=== PATIENT | male | born 1955 | race Caucasian/White ===

== ENCOUNTER 2018-10-31 10:44 | Emergency (ER) | payer OTHER ==
[~2018-10-31] VITALS: Ht 182.9 cm; Wt 94.8 kg
[2018-10-31 10:45] VITALS: BP 167/80
[2018-10-31] MEDS ORDERED: ASPI81TA26 PO (10:54)
[2018-10-31] MEDS ORDERED: LANTINJ4 SC ×2 (10:54→11:18)
[2018-10-31] MEDS ORDERED: PROV108A INH ×2 (10:54→11:18)
[2018-10-31] MEDS ORDERED: ATOR1TAB21 PO (10:54)
[2018-10-31] MEDS ORDERED: BUSP1TAB PO (10:54)
[2018-10-31] MEDS ORDERED: METF-877 PO (10:54)
[2018-10-31] MEDS ORDERED: LISI20TA20 PO ×2 (10:54→11:18)
== END 2018-10-31 11:32 | disposition home or self-care (01) ==
LOC: M ED 10:44
DX: Z76.0 Encounter for issue of repeat prescription (principal); I10 Essential (primary) hypertension; E11.9 Type 2 diabetes mellitus without complications; J45.909 Unspecified asthma, uncomplicated; F32.9 Major depressive disorder, single episode, unspecified; F17.210 Nicotine dependence, cigarettes, uncomplicated; Z79.899 Other long term (current) drug therapy; Z79.4 Long term (current) use of insulin; Z79.82 Long term (current) use of aspirin

== ENCOUNTER 2018-11-20 17:03 | Emergency (ER) | payer OTHER ==
[~2018-11-20] VITALS: Ht 182.9 cm; Wt 88.6 kg
[~2018-11-20 17:03] MED LIST: ASPI81TA26 PO; ATOR1TAB21 PO; BUSP1TAB PO; LANTINJ4 SC; LISI20TA20 PO; METF-877 PO; PROV108A INH
[2018-11-20] MEDS ORDERED: LIDOCAINE 2% MDV 20 ML VIAL SC ONE (18:15)
[2018-11-20] MEDS ORDERED: AUGMENTIN 875 MG TAB PO ONE (18:30)
[2018-11-20] MEDS ORDERED: IBUPROFEN 800 MG TAB PO ONE (18:30)
[2018-11-20] MEDS ORDERED: ADACEL/BOOSTRIX VACCINE (DIPHTH/PERTUSS/ACELL/TETANUS)0.5ML SYR (90715) IM ONE (18:30)
[2018-11-20] MEDS ORDERED: AUGM875T28 PO (18:45)
[2018-11-20 18:50] VITALS: BP 169/76
== END 2018-11-20 18:55 | disposition home or self-care (01) ==
LOC: M ED 17:03
DX: S61.217A Laceration without foreign body of left little finger without damage to nail, initial encounter (principal); W55.01XA Bitten by cat, initial encounter; Y92.008 Other place in unspecified non-institutional (private) residence as the place of occurrence of the external cause; E11.9 Type 2 diabetes mellitus without complications; I10 Essential (primary) hypertension; F33.9 Major depressive disorder, recurrent, unspecified; Z79.899 Other long term (current) drug therapy; Z79.4 Long term (current) use of insulin; F17.210 Nicotine dependence, cigarettes, uncomplicated

== ENCOUNTER 2018-11-26 12:49 | Emergency (ER) | payer MEDICAID, OTHER, SELFPAY ==
[~2018-11-26] VITALS: Ht 182.9 cm; Wt 93.6 kg
[2018-11-26 12:49] VITALS: BP 144/77
[~2018-11-26 12:49] MED LIST changes: +AUGM875T28 PO
[2018-11-26] MEDS ORDERED: LANTINJ4 SC (13:33)
[2018-11-26] MEDS ORDERED: METF10004 PO (13:33)
[2018-11-26] MEDS ORDERED: LISI20TA20 PO (13:33)
[2018-11-26] MEDS ORDERED: PHAR1TES VI (13:33)
[2018-11-26] MEDS ORDERED: ATOR1TAB21 PO (13:33)
[2018-11-26] MEDS ORDERED: PROV108A INH (13:33)
== END 2018-11-26 13:44 | disposition home or self-care (01) ==
LOC: M ED 12:49
DX: Z76.0 Encounter for issue of repeat prescription (principal); E11.9 Type 2 diabetes mellitus without complications; F17.200 Nicotine dependence, unspecified, uncomplicated; F12.90 Cannabis use, unspecified, uncomplicated

== ENCOUNTER 2018-11-28 14:04 | Emergency (ER) | payer MEDICAID ==
[~2018-11-28] VITALS: Ht 182.9 cm; Wt 99.1 kg
[~2018-11-28 14:04] MED LIST changes: +METF10004 PO; +PHAR1TES VI
[2018-11-28 14:05] VITALS: BP 153/72
[2018-11-28] MEDS ORDERED: AUGM875T28 PO (14:28)
== END 2018-11-28 14:54 | disposition home or self-care (01) ==
LOC: M ED 14:04
DX: S61.207A Unspecified open wound of left little finger without damage to nail, initial encounter (principal); S61.251A Open bite of left index finger without damage to nail, initial encounter; W55.01XA Bitten by cat, initial encounter; Y92.009 Unspecified place in unspecified non-institutional (private) residence as the place of occurrence of the external cause; E11.9 Type 2 diabetes mellitus without complications; E78.5 Hyperlipidemia, unspecified; I10 Essential (primary) hypertension; Z79.899 Other long term (current) drug therapy; Z79.4 Long term (current) use of insulin

== ENCOUNTER 2018-12-01 11:02 | Emergency (ER) | payer MEDICAID ==
[~2018-12-01] VITALS: Ht 182.9 cm; Wt 97.7 kg
[2018-12-01 11:02] VITALS: BP 162/75
== END 2018-12-01 11:43 | disposition home or self-care (01) ==
LOC: M ED 11:02
DX: Z48.02 Encounter for removal of sutures (principal); L08.9 Local infection of the skin and subcutaneous tissue, unspecified

== ENCOUNTER 2018-12-28 10:52 | Emergency (ER) | payer MEDICAID ==
[~2018-12-28] VITALS: Ht 182.9 cm; Wt 90.9 kg
[2018-12-28 10:52] VITALS: BP 146/107
== END 2018-12-28 11:07 | disposition left against medical advice (07) ==
LOC: M ED 10:52
DX: Z53.21 Procedure and treatment not carried out due to patient leaving prior to being seen by health care provider (principal)

== ENCOUNTER → 2019-01-10 | Outpatient (REF) | payer MEDICAID, OTHER | LOC: M SFHCPLAZ 13:51 | PROVIDERS: ATTEND Family Medicine | DX: E11.69 Type 2 diabetes mellitus with other specified complication (principal) ==

== ENCOUNTER → 2019-04-20 | Outpatient (REF) | payer MEDICAID, OTHER ==
[2019-04-20 14:37] LABS: BLOOD UREA NITROGEN 12 MG/DL (7-18); CALCIUM LEVEL 9.5 MG/DL (8.8-10.2); CARBON DIOXIDE LEVEL 26 MEQ/L (21-32); CHLORIDE LEVEL 107 MEQ/L (98-107); CHOLESTEROL LEVEL 139 MG/DL (<200); CHOLESTEROL RISK RATIO 3.475 (<5); CREATININE FOR GFR 1.03 MG/DL (0.70-1.30); GLOMERULAR FILTRATION RATE > 60.0 (>49); GLUCOSE, FASTING 210 MG/DL (70-100); HDL CHOLESTEROL 40 MG/DL (>40); LDL CHOLESTEROL 61 MG/DL (<100); NON-HDL-C 99 MG/DL; POTASSIUM SERUM 4.5 MEQ/L (3.5-5.1); SODIUM LEVEL 139 MEQ/L (136-145); TRIGLYCERIDES LEVEL 192 MG/DL (<150)
[2019-04-20 15:07] LABS: MALB URINE SIEMENS 24.6 MG/L; MAU/CREAT RATIO 17.4 MCG/MG (0.0-30.0)
[2019-04-20 15:42] LABS: HEMOGLOBIN A1c 8.6 %
== END ==
LOC: M SFHCPLAZ 11:13
PROVIDERS: ATTEND Family Medicine
DX: E11.65 Type 2 diabetes mellitus with hyperglycemia (principal)

== ENCOUNTER 2019-10-12 12:11 | Emergency (ER) | payer OTHER ==
[~2019-10-12] VITALS: Ht 182.9 cm; Wt 93.0 kg
[2019-10-12] MEDS ORDERED: INSULADS INJ (12:47)
--- NOTE | 2019-10-12 13:32 | REPVR ---
PROCEDURE INFORMATION: Exam: XR Left Hand Exam date and time: 10/12/2019 1:15 PM Age: 64 years old Clinical indication: Pain; Hand; Left; Additional info: Patient punched floor TECHNIQUE: Imaging protocol: XR Left hand. Views: 3 or more views. COMPARISON: No relevant prior studies available. FINDINGS: Bones/joints: No acute fracture. No dislocation. A healed remote-appearing fracture deformity of the 5th metacarpal is present. Soft tissues: Soft tissue swelling overlies the 5th metacarpal. IMPRESSION: 1. No acute fracture. 2. Hand soft tissue swelling. Electronically signed by: Liang Jackson On 10/12/2019 13:31:41 PM
--- NOTE | 2019-10-12 13:37 | REPVR ---
PROCEDURE INFORMATION: Exam: XR Left Forearm Exam date and time: 10/12/2019 1:15 PM Age: 64 years old Clinical indication: Pain; Lower or forearm; Left; Additional info: Patient punched floor TECHNIQUE: Imaging protocol: XR Left forearm. Views: 2 views. COMPARISON: No relevant prior studies available. FINDINGS: Bones/joints: No acute fracture. No dislocation. Soft tissues: Unremarkable as visualized. IMPRESSION: No acute findings. Electronically signed by: Liang Jackson On 10/12/2019 13:37:05 PM
[2019-10-12 14:08] LABS: BASO # 0.1 10^3/uL (0.0-0.2); BASO % 0.4 % (0.0-1.0); EOS % 0.2 % (0.0-3.0); HEMATOCRIT 47.1 % (42.0-52.0); HEMOGLOBIN 15.6 g/dl (13.5-17.5); LYMPH # 2.8 10^3/uL (1.5-5.0); LYMPH % 17.7 % (24.0-44.0); MEAN CORPUSCULAR HEMOGLOBIN 30.8 pg (27.0-33.0); MEAN CORPUSCULAR HGB CONC 33.1 g/dl (32.0-36.5); MEAN CORPUSCULAR VOLUME 92.9 fl (80.0-96.0); MONO # 1.2 10^3/uL (0.0-0.8); MONO % 7.9 % (0.0-5.0); NEUTROPHILS # 11.5 10^3/uL (1.5-8.5); NEUTROPHILS % 73.5 % (36.0-66.0); PLATELET COUNT, AUTOMATED 296 10^3/uL (150-450); RED BLOOD COUNT 5.07 10^6/uL (4.30-6.10); WHITE BLOOD COUNT 15.7 10^3/uL (4.0-10.0)
[2019-10-12 14:35] LABS: BILIRUBIN,DIRECT 0.3 MG/DL (0.0-0.2); BILIRUBIN,TOTAL 1.3 MG/DL (0.2-1.0); C REACTIVE PROTEIN QUANTITATIV 6.43 MG/DL (0.00-0.30); TOTAL PROTEIN 8.4 GM/DL (6.4-8.2)
[2019-10-12 14:38] LABS: ERYTHROCYTE SEDIMENTATION RATE 43 mm/hr (0-20)
[2019-10-12] MEDS ORDERED: BACT800T5 PO (15:27)
[2019-10-12] MEDS ORDERED: KETO10TAB PO (15:27)
[2019-10-12] MEDS ORDERED: KETOROLAC TROMETHAMINE 10 MG TAB PO ONE (15:30)
[2019-10-12 15:32] VITALS: BP 143/76
== END 2019-10-12 15:40 | disposition home or self-care (01) ==
LOC: M ED 12:11
DX: L03.114 Cellulitis of left upper limb (principal); W55.03XA Scratched by cat, initial encounter; E78.5 Hyperlipidemia, unspecified; F32.9 Major depressive disorder, single episode, unspecified; I10 Essential (primary) hypertension; E11.9 Type 2 diabetes mellitus without complications; J44.9 Chronic obstructive pulmonary disease, unspecified; F12.10 Cannabis abuse, uncomplicated; F17.200 Nicotine dependence, unspecified, uncomplicated; Z79.51 Long term (current) use of inhaled steroids; Z79.4 Long term (current) use of insulin; Z79.899 Other long term (current) drug therapy; Y92.9 Unspecified place or not applicable; Y93.9 Activity, unspecified; Y99.9 Unspecified external cause status

== ENCOUNTER → 2020-02-07 | Outpatient (REF) | payer OTHER ==
[~2020-02-07] MED LIST changes: +BACT800T5 PO; +INSULADS INJ; +KETO10TAB PO
[2020-02-07 14:37] LABS: HEMOGLOBIN A1c 8.3 %
[2020-02-07 14:47] LABS: CHOLESTEROL RISK RATIO 2.155 (<5)
== END ==
LOC: M PLALAB 10:50
PROVIDERS: ATTEND Urology
DX: E11.65 Type 2 diabetes mellitus with hyperglycemia (principal); E78.2 Mixed hyperlipidemia

== ENCOUNTER → 2020-02-24 | Outpatient (CLI) | payer OTHER ==
--- NOTE | 2020-02-26 09:40 | REP ---
INDICATION: LUNG CANCER SCREENING COMPARISON: None. TECHNIQUE: Axial noncontrast images from the thoracic inlet to the upper abdomen using low-dose lung screening technique (LDCT). FINDINGS: Lung olivas demonstrate minimal scattered age-related changes and few scattered chronic blebs. No consolidation, significant nodule or mass lesion. Few 1-2 mm densities are appreciated and nonspecific. No effusion. No pneumothorax. Tracheobronchial tree is patent. IMPRESSION: Lung-RADS category 1. Management recommendations include annual low-dose CT evaluation. <Electronically signed by Migue Akers > 02/26/20 0936
== END ==
LOC: M RAD 10:41
PROVIDERS: ATTEND Student in an Organized Health Care Education/Training Program
DX: Z12.2 Encounter for screening for malignant neoplasm of respiratory organs (principal); F17.218 Nicotine dependence, cigarettes, with other nicotine-induced disorders; J43.9 Emphysema, unspecified

== ENCOUNTER 2020-03-25 12:38 | Emergency (ER) | payer OTHER ==
[~2020-03-25] VITALS: Ht 182.9 cm; Wt 89.3 kg
[2020-03-25 12:39] VITALS: BP 138/76
--- OUTSIDE RECORDS SUMMARY | 2020-03-25 12:45 | CCD ---
Author Author [facility] Organization [facility] Address Unknown Phone Unavailable Care Team Providers Care Wind Operations Supervisor Name Role Phone IleanaFe Unavailable PROBLEMS Type Condition ICD9-CM Code [id number] Code Onset Dates Condition S tatus SNOMED Code Notes Problem Open bite of left hand, subsequent encounter S61.4 52D Active 801132682 Problem Bitten by cat, subsequent encounter W55.01XD Act rj 683156848 Problem Hypertension, unspecified type I10 Active 3 7424703 Problem Refused pneumococcal vaccination Z28.21 Active 413123443 Problem Primary insomnia F51.01 Active 0239820 Problem Obesity, unspecified E66.9 Active 275602575 Problem Anxiety F41.9 Active 61032740 Problem Mixed hyperlipidemia E78.2 Active 210085920 Problem Tobacco use disorder F17.200 Active 210098673 Problem Gastroesophageal reflux disease without esophagitis K21.9 Active 044562519 Problem Vaccination refused by patient Z28.21 Active 5 30334661084 Problem Insomnia, unspecified type G47.00 Active 54835 2000 Problem Psychophysiological insomnia F51.04 Active 425 365331 Problem 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.4 Activ e 361815228 Problem Type 2 diabetes mellitus with hyperglycemia E11.65 Active 85267592 ALLERGIES No Known Allergies ENCOUNTERS from 1955 to 2020-02-14 Encounter Location Date Provider Diagnosis [address] [id number] Feb, [place] IMMUNIZATIONS No Information SOCIAL HISTORY Tobacco Use: Social History Observation Description Date Details (start date - stop date) Current Smoker Sex Assigned At : Social History Observation Description Sex Assigned At Unknown Audit Question Answer Notes Total Score: 0 Interpretation: Alcohol Education Language: Question Answer Notes Languages spoken: Malay Drug and Alcohol Question Answer Notes Total Score: 0 Interpretation: No problems reported Tobacco Use: Question Answer Notes Are you a: current smoker Smoking Cessation Information Given 05/18/2019 Patient counseled on the dangers of tobacco use and urged to quit: 05/18/2019 How many cigarettes a day do you smoke? 6-10 Are you interested in quitting? Not ready to quit Counseled the patient on smoking effects, education provided 05/18/2019 REASON FOR REFERRAL No Information VITAL SIGNS No information MEDICATIONS Medication SIG (Take, Route, Frequency, Duration) Notes Start Da te End Date Status Metformin HCl 1000 MG 1 tablet with a meal Orally twice daily for 9 0 day(s) Active Crestor 40 MG 1 tablet Orally Once a day for 90 day(s) Dec, Active Misc. Devices - directed subcutaneously insulin needle; daily for 30 Days Active OneTouch Verio - as directed subcutaneously f our times daily before meals and before bed PRN if lightheadeness, dizziness, or nausea, vomiting for 30 Days Active Lancets Misc. - as directed subcutaneously f our daily before meals and befoer bed and as needed if lightheadeness, dizziness, or nausea, vomiting for 30 Days Jan, Active Lancets - as directed subcutaneously four times daily for 30 Days May, Active Basaglar KwikPen 100 UNIT/ML 47 units Subcutaneous Daily for 30 Days Active Alcohol Wipes 70 % as directed Externally four times daily before meals and before bed and PRN for 30 Days A ctive Proventil HFA 108 (90 Base) MCG/ACT 2 puffs as needed Inhalation every 6 hrs as needed for 30 Active Lisinopril-Hydrochlorothiazide 20-25 MG 1 tablet Orally Once a day for 30 Days Active Cimetidine 200 MG 1 tablet at bedtime Orally Once a day for 90 d ay(s) Dec, Active Aspirin 81 MG 1 tablet Orally Once a day for 90 day(s) Active Seroquel 50 MG 1-2 tablet at bedtime Orally as needed before bedtim e for 28 Active OneTouch Verio w/Device as directed subcutaneously f our times daily before bed and before meals, and as needed Jan, Active PROCEDURES No Information RESULTS No Results REASON FOR VISIT low dose lung scrrening MEDICAL (GENERAL) HISTORY Type Description Date Medical History Osteomyelitis of left foot 20 years ago Medical History HTN Medical History DM 2; diagnosed at 57 yo, with chronic i nsulin use Medical History Anxiety Medical History Tobacco use Medical History Mixed hyperlipidemia Medical History GERD Medical History Insomnia Surgical History cholycystectomy Surgical History appendectomy Hospitalization History infected wound 10/2019 [place] No Information Health Concerns No Information MEDICAL EQUIPMENT No Information MENTAL STATUS No Information FUNCTIONAL STATUS No Information ASSESSMENTS No Information PLAN OF TREATMENT Medication Medication Name Sig Start Date Stop Date Lancets Misc. - as directed subcutaneously f our daily before meals and befoer bed and as needed if lightheadeness, dizziness, or nausea, vomiting for 30 Days Jan, Aspirin 81 MG 1 tablet Orally Once a day for 90 day(s) OneTouch Verio - as directed subcutaneously f our times daily before meals and before bed PRN if lightheadeness, dizziness, or nausea, vomiting for 30 Days Cimetidine 200 MG 1 tablet at bedtime Orally Once a day fo r 90 day(s) Dec, Misc. Devices - directed subcutaneously insulin needle; daily fo r 30 Days Lancets - as directed subcutaneously four times daily for 30 Days May, Basaglar KwikPen 100 UNIT/ML 47 units Subcutaneous Daily for 30 Days Alcohol Wipes 70 % as directed Externally four times daily before meals and before bed and PRN for 30 Days Crestor 40 MG 1 tablet Orally Once a day for 90 day(s) Dec, Metformin HCl 1000 MG 1 tablet with a meal Orally twice daily fo r 90 day(s) Lisinopril-Hydrochlorothiazide 20-25 MG 1 tablet Orally Once a day for 30 Days Insurance Providers Payer Name Payer Address Payer Phone Insured Name Patient Relati onship to Insured Coverage Start Date Coverage End Date [facility] [place] [address] [facility] [phone] DONNA LANCASTER self
--- OUTSIDE RECORDS SUMMARY | 2020-03-25 12:45 | CCD ---
Author Author [facility] Organization [facility] Address Unknown Phone Unavailable Care Team Providers Care Gaming Floor Supervisor Name Role Phone IleanaFe Unavailable PROBLEMS Type Condition ICD9-CM Code [id number] Code Onset Dates Condition S tatus SNOMED Code Notes Problem Open bite of left hand, subsequent encounter S61.4 52D Active 284578456 Problem Bitten by cat, subsequent encounter W55.01XD Act rj 854247570 Problem Hypertension, unspecified type I10 Active 3 0886211 Problem Refused pneumococcal vaccination Z28.21 Active 002430079 Problem Primary insomnia F51.01 Active 3534205 Problem Obesity, unspecified E66.9 Active 621576891 Problem Anxiety F41.9 Active 51636563 Problem Mixed hyperlipidemia E78.2 Active 948984178 Problem Tobacco use disorder F17.200 Active 270489457 Problem Gastroesophageal reflux disease without esophagitis K21.9 Active 296007583 Problem Vaccination refused by patient Z28.21 Active 5 06854911949 Problem Insomnia, unspecified type G47.00 Active 83193 2000 Problem Psychophysiological insomnia F51.04 Active 425 718279 Problem 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 Activ e 348557019 Problem Type 2 diabetes mellitus with hyperglycemia E11.65 Active 99326575 ALLERGIES No Known Allergies ENCOUNTERS from 1955 to 2020-02-14 Encounter Location Date Provider Diagnosis [address] [address] Jan, [place] Encounter for screening for malignant neoplasm of rectum Z12.12 and Encounter for screening for malignant neoplasm of colon Z12.11 IMMUNIZATIONS No Information SOCIAL HISTORY Tobacco Use: Social History Observation Description Date Details (start date - stop date) Current Smoker Sex Assigned At : Social History Observation Description Sex Assigned At Unknown Audit Question Answer Notes Total Score: 0 Interpretation: Alcohol Education Language: Question Answer Notes Languages spoken: [place] Drug and Alcohol Question Answer Notes Total [...] Information RESULTS No Results REASON FOR VISIT Cologua MEDICAL (GENERAL) HISTORY Type Description Date Medical [...] No Information FUNCTIONAL STATUS No Information ASSESSMENTS Encounter Date Diagnosis Assessment Notes Treatment Notes Treatm ent Clinical Notes Jan, Encounter for screening for malignant neoplasm of rectum (ICD-10 - Z12.12) Pt moved from [place]. No prior medical records inluding any colonoscopy record was able to be obtained. Jan, Encounter for screening for malignant neoplasm of colon (ICD-10 - Z12.11) PLAN OF TREATMENT Medication Medication Name Sig [...] Orally Once a day for 30 Days Treatment Notes Assessment Notes Clinical Notes Encounter for screening for malignant neoplasm of rectum Pt moved from [place]. No prior medical records inluding any colonoscopy record was able to be obtained. Treatment Notes Test Name Order Date [facility] (Send Out Only) 2020-02-14 Insurance Providers Payer Name Payer Address Payer Phone Insured Name Patient Relati onship to Insured Coverage Start Date Coverage End Date PENDING SALE TO [facility] [employer] [address] [facility] [phone] DONNA LANCASTER self
--- OUTSIDE RECORDS SUMMARY | 2020-03-25 12:46 | CCD ---
Author Author [facility] Organization [facility] Address Unknown Phone Unavailable Support Name Relationship Address Phone LAYLA COHEN Next Of Kin [address] [place] [address] JOAQUIN COHEN Next Of Kin [address] [place] [address] RE Next Of Kin Unknown Unavailable SUSU SALMERON Next Of Kin [address] [place] [address] LAYLA Cohen ECON [address] [place] [address] Unavailable Joaquin Cohen ECON [address] [place] [address] Unavailable Re-disclosure Warning The records that you are about to access may contain information from federally-assisted alcohol or drug abuse programs. If such information is present, then the following federally mandated warning applies: This information has been disclosed to you from records protected by federal confidentiality rules (42 CFR part 2). The federal rules prohibit you from making any further disclosure of this information unless further disclosure is expressly permitted by the written consent of the person to whom it pertains or as otherwise permitted by 42 CFR part 2. A general authorization for the release of medical or other information is NOT sufficient for this purpose. The Federal rules restrict any use of the information to criminally investigate or prosecute any alcohol or drug abuse patient.The records that you are about to access may contain highly sensitive health information, the redisclosure of which is protected by Article 27-F of the [place] State Public Health law. If you continue you may have access to information: Regarding HIV / AIDS; Provided by facilities licensed or operated by the [facility] Office of Mental Health; or Provided by the [facility] Office for People With Developmental Disabilities. If such information is present, then the following [facility] mandated warning applies: This information has been disclosed to you from confidential records which are protected by state law. State law prohibits you from making any further disclosure of this information without the specific written consent of the person to whom it pertains, or as otherwise permitted by law. Any unauthorized further disclosure in violation of state law may result in a fine or fci sentence or both. A general authorization for the release of medical or other information is NOT sufficient authorization for further disc losure. Encounters Encounter Providers Location Date Indications Data Source(s ) Unknown [address] [place] [phone] 02/13/2020 12:00:00 AM EST eCW1 ([facility]) Unknown [address] [facility] [id number] 02/08/2020 12:00:00 AM EST eCW1 ([facility]) Outpatient [address] [place] [phone] 11/29/2019 12:00:00 AM EDT eCW1 ([facility]) Unknown [address] [facility] [phone] 11/21/2019 12:00:00 AM EDT eCW1 ([facility]) Outpatient [address] [facility] [id number] 08/30/2019 12:00:00 AM EDT eCW1 ([facility]) [address] [phone] 06/22/2019 12:00:00 AM EDT eCW1 ([facility]) [facility] [address] [place] [phone] 06/20/2019 12:00:00 AM EDT eCW1 ([facility]) [facility] [address] [place] [phone] 06/17/2019 12:00:00 AM EDT eCW1 ([facility]) [facility] [address] [facility] [phone] 06/17/2019 12:00:00 AM EDT eCW1 ([facility]) [facility] GME Resident [address] [place] [phone] 06/16/2019 12:00:00 AM EDT eCW1 ([facility]) [address] [phone] 05/19/2019 12:00:00 AM EDT eCW1 ([facility]) [facility] GME Resident [address] [place] [phone] 05/18/2019 12:00:00 AM EDT eCW1 ([facility]) [address] [phone] 04/23/2019 12:00:00 AM EDT eCW1 ([facility]) [facility] GME Resident [address] [place] [phone] 04/20/2019 12:00:00 AM EDT eCW1 ([facility]) [facility] Natalie [address] [place] [phone] 04/20/2019 12:00:00 AM EDT eCW1 ([facility]) [address] [phone] 04/20/2019 12:00:00 AM EDT eCW1 ([facility]) [facility] GME Resident [address] [place] [phone] 03/02/2019 12:00:00 AM EST eCW1 ([facility]) [address] [phone] 02/28/2019 12:00:00 AM EST eCW1 ([facility]) [facility] GME Resident [address] [place] [phone] 01/31/2019 12:00:00 AM EST eCW1 ([facility]) [facility] [place] [address] [place] [phone] 01/31/2019 12:00:00 AM EST eCW1 [facility] Medications Medication Brand Name Start Date Product Form Dose Route Admi nistrative Instructions Pharmacy Instructions Status Indications Reaction Description Data Source(s) quetiapine 50 MG Oral Tablet QUETIAPINE FUMARATE 02/18/2020 12:0 0:00 AM EST tablet 56 TAKE ONE TO TWO TABLETS BY MOUTH AT BEDTIME NEEDED TAKE ONE TO TWO TABLETS BY MOUTH AT BEDTIME NEEDED SOLD: 02/18/2020 [facility] quetiapine 50 MG Oral Tablet QUETIAPINE FUMARATE 02/18/2020 12:0 0:00 AM EST tablet 56 TAKE ONE TO TWO TABLETS BY MOUTH AT BEDTIME NEEDED TAKE ONE TO TWO TABLETS BY MOUTH AT BEDTIME NEEDED SOLD: 03/16/2020 [facility] Metformin hydrochloride 1000 MG Oral Tablet 1,000 mg METFORM IN HCL 02/13/2020 12:00:00 AM EST tablet 60 TAKE ONE TABLET BY MOUTH TWO TIMES A DAY WITH A MEAL TAKE ONE TABLET BY MOUTH TWO TIMES A DAY WITH A MEAL SOLD: 02/16/2020 [facility] Metformin hydrochloride 1000 MG Oral Tablet 1,000 mg METFORM IN HCL 02/13/2020 12:00:00 AM EST tablet 60 TAKE ONE TABLET BY MOUTH TWO TIMES A DAY WITH A MEAL TAKE ONE TABLET BY MOUTH TWO TIMES A DAY WITH A MEAL SOLD: 03/16/2020 [facility] 32 gauge x 5/32" 02/09/2020 12:00:00 AM EST needle 100 USE DIRECTED DAILY USE DIRECTED DAILY SOLD: 02/12/2020 [facility] 33 gauge 02/08/2020 12:00:00 AM EST misc 100 USE DIRECTED FOUR TIMES A DAY BEFORE MEALS AND BEFORE BED AND NEEDED IF LIGHTHEADENESS, DIZZINESS, NAUSEA OR VOMITING USE DIRECTED FOUR TIMES A DAY BEFORE MEALS AND BEFORE BED AND NEEDED IF LIGHTHEADENESS, DIZZINESS, NAUSEA OR VOMITING SOLD: 02/09/2020 [facility] ALCOHOL ANTISEPTIC PADS 02/08/2020 12:00:00 AM EST pads, med icated 100 USE DIRECTED FOUR TIMES A DAY BEFORE MEALS AND BEFORE BED AND NEEDED USE DIRECTED FOUR TIMES A DAY BEFORE MEALS AND BEFORE BED AND NEEDED SOLD: 03/07/2020 [facility] ALCOHOL ANTISEPTIC PADS 02/08/2020 12:00:00 AM EST pads, med icated 100 USE DIRECTED FOUR TIMES A DAY BEFORE MEALS AND BEFORE BED AND NEEDED USE DIRECTED FOUR TIMES A DAY BEFORE MEALS AND BEFORE BED AND NEEDED SOLD: 02/09/2020 [facility] 33 gauge 02/08/2020 12:00:00 AM EST misc 100 USE DIRECTED FOUR TIMES A DAY BEFORE MEALS AND BEFORE BED AND NEEDED IF LIGHTHEADENESS, DIZZINESS, NAUSEA OR VOMITING USE DIRECTED FOUR TIMES A DAY BEFORE MEALS AND BEFORE BED AND NEEDED IF LIGHTHEADENESS, DIZZINESS, NAUSEA OR VOMITING SOLD: 03/04/2020 [facility] BLOOD SUGAR DIAGNOSTIC 01/29/2020 12:00:00 AM EST strip 100 USE 3X/DAY BEFORE MEALS AND NEEDED IF DIZZY NAUSEA LIGHTHEADED OR VOMITING USE 3X/DAY BEFORE MEALS AND NEEDED IF DIZZY NAUSEA LIGHTHEADED OR VOMITING SOLD: 02/24/2020 [facility] BLOOD SUGAR DIAGNOSTIC 01/29/2020 12:00:00 AM EST strip 100 USE 3X/DAY BEFORE MEALS AND NEEDED IF DIZZY NAUSEA LIGHTHEADED OR VOMITING USE 3X/DAY BEFORE MEALS AND NEEDED IF DIZZY NAUSEA LIGHTHEADED OR VOMITING SOLD: 03/20/2020 [facility] BLOOD SUGAR DIAGNOSTIC 01/29/2020 12:00:00 AM EST strip 100 USE 3X/DAY BEFORE MEALS AND NEEDED IF DIZZY NAUSEA LIGHTHEADED OR VOMITING USE 3X/DAY BEFORE MEALS AND NEEDED IF DIZZY NAUSEA LIGHTHEADED OR VOMITING SOLD: 01/29/2020 [facility] 100 unit/mL (3 mL) 01/28/2020 12:00:00 AM EST insulin pen 15 INJECT 47 UNITS UNDER SKIN DAILY DIRECTED INJECT 47 UNITS UNDER SKIN DAILY DIRECTED SOLD: 02/27/2020 [facility] 100 unit/mL (3 mL) 01/28/2020 12:00:00 AM EST insulin pen 15 INJECT 47 UNITS UNDER SKIN DAILY DIRECTED INJECT 47 UNITS UNDER SKIN DAILY DIRECTED SOLD: 01/29/2020 [facility] 20-25 mg 01/25/2020 12:00:00 AM EST tablet 30 TAKE ONE TABLET BY MOUTH EVERY DAY TAKE ONE TABLET BY MOUTH EVERY DAY SOLD: 02/27/2020 [facility] 20-25 mg 01/25/2020 12:00:00 AM EST tablet 30 TAKE ONE TABLET BY MOUTH EVERY DAY TAKE ONE TABLET BY MOUTH EVERY DAY SOLD: 01/27/2020 [facility] 200 mg 12/30/2019 12:00:00 AM EST tablet 30 TAKE 1 TABLET BY MOUTH ONCE A DAY AT BEDTIME TAKE 1 TABLET BY MOUTH ONCE A DAY AT BEDTIME SOLD: 01/29/2020 [facility] Rosuvastatin calcium 40 MG Oral Tablet [Crestor] Crestor 40 MG Crestor 40 MG 12/30/2019 12:00:00 AM EST 1.0 {tablet} active Crestor 40 MG eCW1 ([facility]) Rosuvastatin calcium 40 MG Oral Tablet [Crestor] Crestor 40 MG Crestor 40 MG 12/30/2019 12:00:00 AM EST 1.0 {tablet} active Crestor 40 MG eCW1 ([facility]) Rosuvastatin calcium 40 MG Oral Tablet ROSUVASTATIN CALCIUM 12/30/2019 12:00:00 AM EST tablet 30 TAKE 1 TABLET BY MOUTH ONCE A DAY TAKE 1 TABLET BY MOUTH ONCE A DAY SOLD: 02/27/2020 [facility] Rosuvastatin calcium 40 MG Oral Tablet ROSUVASTATIN CALCIUM 12/30/2019 12:00:00 AM EST tablet 30 TAKE 1 TABLET BY MOUTH ONCE A DAY TAKE 1 TABLET BY MOUTH ONCE A DAY SOLD: 12/31/2019 [facility] Rosuvastatin calcium 40 MG Oral Tablet ROSUVASTATIN CALCIUM 12/30/2019 12:00:00 AM EST tablet 30 TAKE 1 TABLET BY MOUTH ONCE A DAY TAKE 1 TABLET BY MOUTH ONCE A DAY SOLD: 01/29/2020 [facility] Cimetidine 200 MG Oral Tablet Cimetidine 200 MG 12/30/2019 12:00:00 AM EST 1.0 {tablet_at_bedtime} active Cimetidine 200 MG eCW1 ([facility]) Cimetidine 200 MG Oral Tablet Cimetidine 200 MG 12/30/2019 12:00:00 AM EST 1.0 {tablet_at_bedtime} active Cimetidine 200 MG eCW1 ([facility]) 200 mg 12/30/2019 12:00:00 AM EST tablet 30 TAKE 1 TABLET BY MOUTH ONCE A DAY AT BEDTIME TAKE 1 TABLET BY MOUTH ONCE A DAY AT BEDTIME SOLD: 02/27/2020 [facility] 200 mg 12/30/2019 12:00:00 AM EST tablet 30 TAKE 1 TABLET BY MOUTH ONCE A DAY AT BEDTIME TAKE 1 TABLET BY MOUTH ONCE A DAY AT BEDTIME SOLD: 12/31/2019 [facility] 32 gauge x 5/32" 12/14/2019 12:00:00 AM EST needle 30 USE DIRECTED DAILY USE DIRECTED DAILY SOLD: 12/15/2019 [facility] 32 gauge x 5/32" 12/14/2019 12:00:00 AM EST needle 30 USE DIRECTED DAILY USE DIRECTED DAILY SOLD: 01/14/2020 [facility] 90 mcg/actuation 11/29/2019 12:00:00 AM EDT HFA aerosol inha ler 6 INHALE 2 PUFFS EVERY 6 HOURS NEEDED INHALE 2 PUFFS EVERY 6 HOURS NEEDED SOLD: 01/18/2020 [facility] 90 mcg/actuation 11/29/2019 12:00:00 AM EDT HFA aerosol inha ler 6 INHALE 2 PUFFS EVERY 6 HOURS NEEDED INHALE 2 PUFFS EVERY 6 HOURS NEEDED SOLD: 12/04/2019 [facility] 90 mcg/actuation 11/29/2019 12:00:00 AM EDT HFA aerosol inha ler 6 INHALE 2 PUFFS EVERY 6 HOURS NEEDED INHALE 2 PUFFS EVERY 6 HOURS NEEDED SOLD: 03/07/2020 [facility] 90 mcg/actuation 11/29/2019 12:00:00 AM EDT HFA aerosol inha ler 6 INHALE 2 PUFFS EVERY 6 HOURS NEEDED INHALE 2 PUFFS EVERY 6 HOURS NEEDED SOLD: 02/12/2020 [facility] 20-25 mg 11/29/2019 12:00:00 AM EDT tablet 30 TAKE ONE TABLET BY MOUTH ONCE DAILY TAKE ONE TABLET BY MOUTH ONCE DAILY SOLD: 12/04/2019 [facility] 33 gauge 11/29/2019 12:00:00 AM EDT misc 100 TEST THREE TIMES A DAY BEFORE MEALS AND NEEDED TEST THREE TIMES A DAY BEFORE MEALS AND NEEDED SOLD : 12/04/2019 [facility] atorvastatin 80 MG Oral Tablet ATORVASTATIN CALCIUM 11/29/2019 1 2:00:00 AM EDT tablet 30 TAKE ONE TABLET BY MOUTH ONCE DA ANNE TAKE ONE TABLET BY MOUTH ONCE DAILY SOLD: 12/04/2019 [facility] 33 gauge 11/29/2019 12:00:00 AM EDT misc 100 TEST THREE TIMES A DAY BEFORE MEALS AND NEEDED TEST THREE TIMES A DAY BEFORE MEALS AND NEEDED SOLD : 12/28/2019 [facility] quetiapine 50 MG Oral Tablet QUETIAPINE FUMARATE 11/28/2019 12:0 0:00 AM EDT tablet 56 TAKE ONE TO TWO TABLETS BY MOUTH AT BEDTIME NEEDED TAKE ONE TO TWO TABLETS BY MOUTH AT BEDTIME NEEDED SOLD: 01/21/2020 [facility] quetiapine 50 MG Oral Tablet QUETIAPINE FUMARATE 11/28/2019 12:0 0:00 AM EDT tablet 56 TAKE ONE TO TWO TABLETS BY MOUTH AT BEDTIME NEEDED TAKE ONE TO TWO TABLETS BY MOUTH AT BEDTIME NEEDED SOLD: 11/29/2019 [facility] quetiapine 50 MG Oral Tablet QUETIAPINE FUMARATE 11/28/2019 12:0 0:00 AM EDT tablet 56 TAKE ONE TO TWO TABLETS BY MOUTH AT BEDTIME NEEDED TAKE ONE TO TWO TABLETS BY MOUTH AT BEDTIME NEEDED SOLD: 12/25/2019 [facility] 81 mg 11/23/2019 12:00:00 AM EDT tablet,delayed release (DR/EC) 30 TAKE ONE TABLET BY MOUTH EVERY DAY TAKE ONE TABLET BY MOUTH EVERY DAY SOLD: 01/27/2020 [facility] 81 mg 11/23/2019 12:00:00 AM EDT tablet,delayed release (DR/EC) 30 TAKE ONE TABLET BY MOUTH EVERY DAY TAKE ONE TABLET BY MOUTH EVERY DAY SOLD: 12/28/2019 [facility] 81 mg 11/23/2019 12:00:00 AM EDT tablet,delayed release (DR/EC) 30 TAKE ONE TABLET BY MOUTH EVERY DAY TAKE ONE TABLET BY MOUTH EVERY DAY SOLD: 11/29/2019 [facility] 100 unit/mL (3 mL) 11/23/2019 12:00:00 AM EDT insulin pen 15 INJECT 47 UNITS UNDER THE SKIN ONCE DAILY INJECT 47 UNITS UNDER THE SKIN ONCE DAILY SOLD: 11/29/2019 [facility] 100 unit/mL (3 mL) 11/23/2019 12:00:00 AM EDT insulin pen 15 INJECT 47 UNITS UNDER THE SKIN ONCE DAILY INJECT 47 UNITS UNDER THE SKIN ONCE DAILY SOLD: 12/31/2019 [facility] 81 mg 11/23/2019 12:00:00 AM EDT tablet,delayed release (DR/EC) 30 TAKE ONE TABLET BY MOUTH EVERY DAY TAKE ONE TABLET BY MOUTH EVERY DAY SOLD: 02/27/2020 [facility] Sulfamethoxazole 800 MG / Trimethoprim 160 MG Oral Tab let 800-160 mg SULFAMETHOXAZOLE/TRIMETHOPRIM 10/12/2019 12:00:00 AM EDT tablet 20 TAKE ONE TABLET BY MOUTH EVERY 12 HOURS TAKE ONE TABLET BY MOUTH EVERY 12 HOURS SOLD: 10/12/2019 [facility] 10 mg 10/12/2019 12:00:00 AM EDT tablet 20 TAKE 1 TABLET [10MG] BY MOUTH EVERY 6 HOURS NEEDED FOR PAIN TAKE 1 TABLET [10MG] BY MOUTH EVERY 6 HO URS NEEDED FOR PAIN SOLD: 10/12/2019 [facility] 100 unit/mL (3 mL) 09/26/2019 12:00:00 AM EDT insulin pen 15 INJECT 47 UNITS UNDER SKIN DAILY DIRECTED INJECT 47 UNITS UNDER SKIN DAILY DIRECTED SOLD: 09/26/2019 [facility] 100 unit/mL (3 mL) 09/26/2019 12:00:00 AM EDT insulin pen 15 INJECT 47 UNITS UNDER SKIN DAILY DIRECTED INJECT 47 UNITS UNDER SKIN DAILY DIRECTED SOLD: 10/25/2019 [facility] BLOOD SUGAR DIAGNOSTIC 09/19/2019 12:00:00 AM EDT strip 125 USE TO TEST THREE TIMES A DAY BEFORE MEALS & NEEDED IF LIGHTHEADEDNESS , DIZZINESS, OR NAUSEA,VOMITING USE TO TEST THREE TIMES A DAY BEFORE VALERIE LS & NEEDED IF LIGHTHEADEDNESS , DIZZINESS, OR NAUSEA,VOMITING SOLD: 12/25/2019 [facility] BLOOD SUGAR DIAGNOSTIC 09/19/2019 12:00:00 AM EDT strip 125 USE TO TEST THREE TIMES A DAY BEFORE MEALS & NEEDED IF LIGHTHEADEDNESS , DIZZINESS, OR NAUSEA,VOMITING USE TO TEST THREE TIMES A DAY BEFORE VALERIE LS & NEEDED IF LIGHTHEADEDNESS , DIZZINESS, OR NAUSEA,VOMITING SOLD: 11/23/2019 [facility] BLOOD SUGAR DIAGNOSTIC 09/19/2019 12:00:00 AM EDT strip 125 USE TO TEST THREE TIMES A DAY BEFORE MEALS & NEEDED IF LIGHTHEADEDNESS , DIZZINESS, OR NAUSEA,VOMITING USE TO TEST THREE TIMES A DAY BEFORE VALERIE LS & NEEDED IF LIGHTHEADEDNESS , DIZZINESS, OR NAUSEA,VOMITING SOLD: 09/19/2019 [facility] quetiapine 50 MG Oral Tablet QUETIAPINE FUMARATE 08/31/2019 12:0 0:00 AM EDT tablet 56 TAKE ONE TO TWO TABLETS BY MOUTH AT BEDTIME NEEDED TAKE ONE TO TWO TABLETS BY MOUTH AT BEDTIME NEEDED SOLD: 10/29/2019 [facility] quetiapine 50 MG Oral Tablet QUETIAPINE FUMARATE 08/31/2019 12:0 0:00 AM EDT tablet 56 TAKE ONE TO TWO TABLETS BY MOUTH AT BEDTIME NEEDED TAKE ONE TO TWO TABLETS BY MOUTH AT BEDTIME NEEDED SOLD: 09/02/2019 [facility] quetiapine 50 MG Oral Tablet QUETIAPINE FUMARATE 08/31/2019 12:0 0:00 AM EDT tablet 56 TAKE ONE TO TWO TABLETS BY MOUTH AT BEDTIME NEEDED TAKE ONE TO TWO TABLETS BY MOUTH AT BEDTIME NEEDED SOLD: 10/01/2019 [facility] 100 unit/mL (3 mL) 08/26/2019 12:00:00 AM EDT insulin pen 15 INJECT 40 UNITS UNDER SKIN DAILY INJECT 40 UNITS UNDER SKIN DAILY SOLD: 08/29/2019 [facility] 1,000 mg 08/18/2019 12:00:00 AM EDT tablet 60 TAKE ONE TABLET BY MOUTH TWICE A DAY WITH MEALS TAKE ONE TABLET BY MOUTH TWICE A DAY WITH MEALS SOLD: 08/20/2019 [facility] 1,000 mg 08/18/2019 12:00:00 AM EDT tablet 60 TAKE ONE TABLET BY MOUTH TWICE A DAY WITH MEALS TAKE ONE TABLET BY MOUTH TWICE A DAY WITH MEALS SOLD: 09/17/2019 [facility] Metformin hydrochloride 1000 MG Oral Tablet 1,000 mg METFORM IN HCL 08/18/2019 12:00:00 AM EDT tablet 60 TAKE ONE TABLET BY MOUTH TWICE A DAY WITH MEALS TAKE ONE TABLET BY MOUTH TWICE A DAY WITH MEALS SOLD: 10/18/2019 [facility] Metformin hydrochloride 1000 MG Oral Tablet 1,000 mg METFORM IN HCL 08/18/2019 12:00:00 AM EDT tablet 60 TAKE ONE TABLET BY MOUTH TWICE A DAY WITH MEALS TAKE ONE TABLET BY MOUTH TWICE A DAY WITH MEALS SOLD: 12/17/2019 [facility] Metformin hydrochloride 1000 MG Oral Tablet 1,000 mg METFORM IN HCL 08/18/2019 12:00:00 AM EDT tablet 60 TAKE ONE TABLET BY MOUTH TWICE A DAY WITH MEALS TAKE ONE TABLET BY MOUTH TWICE A DAY WITH MEALS SOLD: 01/16/2020 [facility] Metformin hydrochloride 1000 MG Oral Tablet 1,000 mg METFORM IN HCL 08/18/2019 12:00:00 AM EDT tablet 60 TAKE ONE TABLET BY MOUTH TWICE A DAY WITH MEALS TAKE ONE TABLET BY MOUTH TWICE A DAY WITH MEALS SOLD: 11/16/2019 [facility] 25 mg 07/12/2019 12:00:00 AM EDT tablet 28 TAKE ONE TABLET BY MOUTH AT BEDTIME NEEDED TAKE ONE TABLET BY MOUTH AT BEDTIME NEEDED SOLD: [facility] 90 mcg/actuation 07/12/2019 12:00:00 AM EDT HFA aerosol inha ler 6 INHALE 2 PUFFS BY MOUTH EVERY 6 HOURS NEEDED INHALE 2 PUFFS BY MOUTH EVERY 6 HOURS NEEDED SOLD: 10/11/2019 [facility] 90 mcg/actuation 07/12/2019 12:00:00 AM EDT HFA aerosol inha ler 6 INHALE 2 PUFFS BY MOUTH EVERY 6 HOURS NEEDED INHALE 2 PUFFS BY MOUTH EVERY 6 HOURS NEEDED SOLD: 08/13/2019 [facility] 90 mcg/actuation 07/12/2019 12:00:00 AM EDT HFA aerosol inha ler 6 INHALE 2 PUFFS BY MOUTH EVERY 6 HOURS NEEDED INHALE 2 PUFFS BY MOUTH EVERY 6 HOURS NEEDED SOLD: 07/13/2019 [facility] 90 mcg/actuation 07/12/2019 12:00:00 AM EDT HFA aerosol inha ler 6 INHALE 2 PUFFS BY MOUTH EVERY 6 HOURS NEEDED INHALE 2 PUFFS BY MOUTH EVERY 6 HOURS NEEDED SOLD: 09/12/2019 [facility] 90 mcg/actuation 07/12/2019 12:00:00 AM EDT HFA aerosol inha ler 6 INHALE 2 PUFFS BY MOUTH EVERY 6 HOURS NEEDED INHALE 2 PUFFS BY MOUTH EVERY 6 HOURS NEEDED SOLD: 11/08/2019 [facility] 25 mg 07/12/2019 12:00:00 AM EDT tablet 28 TAKE ONE TABLET BY MOUTH AT BEDTIME NEEDED TAKE ONE TABLET BY MOUTH AT BEDTIME NEEDED SOLD: [facility] 90 mcg/actuation 07/12/2019 12:00:00 AM EDT HFA aerosol inha ler 6 INHALE 2 PUFFS BY MOUTH EVERY 6 HOURS NEEDED INHALE 2 PUFFS BY MOUTH EVERY 6 HOURS NEEDED SOLD: 12/22/2019 [facility] 20-25 mg 07/07/2019 12:00:00 AM EDT tablet 30 TAKE ONE TABLET BY MOUTH EVERY DAY TAKE ONE TABLET BY MOUTH EVERY DAY SOLD: 12/28/2019 [facility] 20-25 mg 07/07/2019 12:00:00 AM EDT tablet 30 TAKE ONE TABLET BY MOUTH EVERY DAY TAKE ONE TABLET BY MOUTH EVERY DAY SOLD: 09/07/2019 [facility] 20-25 mg 07/07/2019 12:00:00 AM EDT tablet 30 TAKE ONE TABLET BY MOUTH EVERY DAY TAKE ONE TABLET BY MOUTH EVERY DAY SOLD: 07/08/2019 [facility] 20-25 mg 07/07/2019 12:00:00 AM EDT tablet 30 TAKE ONE TABLET BY MOUTH EVERY DAY TAKE ONE TABLET BY MOUTH EVERY DAY SOLD: 08/08/2019 [facility] 20-25 mg 07/07/2019 12:00:00 AM EDT tablet 30 TAKE ONE TABLET BY MOUTH EVERY DAY TAKE ONE TABLET BY MOUTH EVERY DAY SOLD: 10/06/2019 [facility] 20-25 mg 07/07/2019 12:00:00 AM EDT tablet 30 TAKE ONE TABLET BY MOUTH EVERY DAY TAKE ONE TABLET BY MOUTH EVERY DAY SOLD: 11/08/2019 [facility] 32 gauge x 5/32" 06/25/2019 12:00:00 AM EDT needle 30 USE DIRECTED DAILY USE DIRECTED DAILY SOLD: 11/16/2019 [facility] 32 gauge x 5/32" 06/25/2019 12:00:00 AM EDT needle 30 USE DIRECTED DAILY USE DIRECTED DAILY SOLD: 09/17/2019 [facility] 32 gauge x 5/32" 06/25/2019 12:00:00 AM EDT needle 30 USE DIRECTED DAILY USE DIRECTED DAILY SOLD: 06/25/2019 [facility] 32 gauge x 5/32" 06/25/2019 12:00:00 AM EDT needle 30 USE DIRECTED DAILY USE DIRECTED DAILY SOLD: 07/23/2019 [facility] 32 gauge x 5/32" 06/25/2019 12:00:00 AM EDT needle 30 USE DIRECTED DAILY USE DIRECTED DAILY SOLD: 08/20/2019 [facility] 32 gauge x 5/32" 06/25/2019 12:00:00 AM EDT needle 30 USE DIRECTED DAILY USE DIRECTED DAILY SOLD: 10/18/2019 [facility] 29 gauge x 1/2" 06/22/2019 12:00:00 AM EDT needle 30 USE DIRECTED DAILY USE DIRECTED DAILY SOLD: 06/24/2019 [facility] Basaglar KwikPen 100 UNIT/ML Basaglar KwikPen 100 UNIT/ML 12:00:00 AM EDT active as directed eCW1 ([facility]) Basaglar KwikPen 100 UNIT/ML Basaglar KwikPen 100 UNIT/ML 12:00:00 AM EDT active as directed eCW1 ([facility]) ALCOHOL ANTISEPTIC PADS 06/17/2019 12:00:00 AM EDT pads, med icated 100 USE DIRECTED THREE TIMES A DAY FOR BLOOD GLUCOSE CHECKS USE DIRECTED THREE TIMES A DAY FOR BLOOD GLUCOSE CHECKS SOLD: 12/28/2019 [facility] ALCOHOL ANTISEPTIC PADS 06/17/2019 12:00:00 AM EDT pads, med icated 100 USE DIRECTED THREE TIMES A DAY FOR BLOOD GLUCOSE CHECKS USE DIRECTED THREE TIMES A DAY FOR BLOOD GLUCOSE CHECKS SOLD: 11/08/2019 [facility] ALCOHOL ANTISEPTIC PADS 06/17/2019 12:00:00 AM EDT pads, med icated 100 USE DIRECTED THREE TIMES A DAY FOR BLOOD GLUCOSE CHECKS USE DIRECTED THREE TIMES A DAY FOR BLOOD GLUCOSE CHECKS SOLD: 08/17/2019 [facility] ALCOHOL ANTISEPTIC PADS 06/17/2019 12:00:00 AM EDT pads, med icated 100 USE DIRECTED THREE TIMES A DAY FOR BLOOD GLUCOSE CHECKS USE DIRECTED THREE TIMES A DAY FOR BLOOD GLUCOSE CHECKS SOLD: 07/18/2019 [facility] ALCOHOL ANTISEPTIC PADS 06/17/2019 12:00:00 AM EDT pads, med icated 100 USE DIRECTED THREE TIMES A DAY FOR BLOOD GLUCOSE CHECKS USE DIRECTED THREE TIMES A DAY FOR BLOOD GLUCOSE CHECKS SOLD: 09/16/2019 [facility] ALCOHOL ANTISEPTIC PADS 06/17/2019 12:00:00 AM EDT pads, med icated 100 USE DIRECTED THREE TIMES A DAY FOR BLOOD GLUCOSE CHECKS USE DIRECTED THREE TIMES A DAY FOR BLOOD GLUCOSE CHECKS SOLD: 06/18/2019 [facility] BLOOD SUGAR DIAGNOSTIC 06/16/2019 12:00:00 AM EDT strip 100 USE TO TEST BLOOD GLUCOSE THREE TIMES A DAY AND NEEDED IF LIGHTHEAD, DIZZY, AND NAUSEA / VOMITING USE TO TEST BLOOD GLUCOSE THREE TIMES A DAY AND NEEDED IF LIGHTHEAD, DIZZY, AND NAUSEA / VOMITING SOLD: 07/15/2019 [facility] BLOOD SUGAR DIAGNOSTIC 06/16/2019 12:00:00 AM EDT strip 100 USE TO TEST BLOOD GLUCOSE THREE TIMES A DAY AND NEEDED IF LIGHTHEAD, DIZZY, AND NAUSEA / VOMITING USE TO TEST BLOOD GLUCOSE THREE TIMES A DAY AND NEEDED IF LIGHTHEAD, DIZZY, AND NAUSEA / VOMITING SOLD: 08/23/2019 [facility] BLOOD SUGAR DIAGNOSTIC 06/16/2019 12:00:00 AM EDT strip 100 USE TO TEST BLOOD GLUCOSE THREE TIMES A DAY AND NEEDED IF LIGHTHEAD, DIZZY, AND NAUSEA / VOMITING USE TO TEST BLOOD GLUCOSE THREE TIMES A DAY AND NEEDED IF LIGHTHEAD, DIZZY, AND NAUSEA / VOMITING SOLD: 10/25/2019 [facility] BLOOD SUGAR DIAGNOSTIC 06/16/2019 12:00:00 AM EDT strip 100 USE TO TEST BLOOD GLUCOSE THREE TIMES A DAY AND NEEDED IF LIGHTHEAD, DIZZY, AND NAUSEA / VOMITING USE TO TEST BLOOD GLUCOSE THREE TIMES A DAY AND NEEDED IF LIGHTHEAD, DIZZY, AND NAUSEA / VOMITING SOLD: 06/17/2019 [facility] 1.5 mg/0.5 mL 05/20/2019 12:00:00 AM EDT pen injector 2 INJECT 1.5MG UNDER THE SKIN ONCE WEEKLY INJECT 1.5MG UNDER THE SKIN ONCE WEEKLY SOLD: 05/26/2019 [facility] 0.5 ML dulaglutide 3 MG/ML Auto-Injector [Trulicity] T rulicity 1.5 MG/0.5ML Trulicity 1.5 MG/0.5ML 05/19/2019 12:00:00 AM EDT active as directed eCW1 ([facility]) Lancets - Lancets - 05/18/2019 12:00:00 AM EDT act rj as directed eCW1 ([facility]) Lancets - Lancets - 05/18/2019 12:00:00 AM EDT act rj Lancets - eCW1 ([facility]) Lancets - Lancets - 05/18/2019 12:00:00 AM EDT act rj Lancets - eCW1 ([facility]) Lancets - Lancets - 05/18/2019 12:00:00 AM EDT act rj Lancets - eCW1 ([facility]) atorvastatin 80 MG Oral Tablet Atorvastatin Calcium 80 MG Atorvastatin Calcium 80 MG 05/18/2019 12:00:00 AM EDT 1.0 {tablet} activ e Atorvastatin Calcium 80 MG eCW1 ([facility]) Lancets - Lancets - 05/18/2019 12:00:00 AM EDT act rj as directed eCW1 ([facility]) 33 gauge 05/18/2019 12:00:00 AM EDT misc 100 USE DIRECTED FOUR TIMES A DAY USE DIRECTED FOUR TIMES A DAY SOLD: 05/20/2019 [facility] Lancets - Lancets - 05/18/2019 12:00:00 AM EDT act rj as directed eCW1 ([facility]) atorvastatin 80 MG Oral Tablet Atorvastatin Calcium 80 MG Atorvastatin Calcium 80 MG 05/18/2019 12:00:00 AM EDT 1.0 {tablet} activ e Atorvastatin Calcium 80 MG eCW1 ([facility]) Lancets - Lancets - 05/18/2019 12:00:00 AM EDT act rj Lancets - eCW1 ([facility]) atorvastatin 80 MG Oral Tablet Atorvastatin Calcium 80 MG Atorvastatin Calcium 80 MG 05/18/2019 12:00:00 AM EDT active 1 tablet eCW1 ([facility]) atorvastatin 80 MG Oral Tablet Atorvastatin Calcium 80 MG Atorvastatin Calcium 80 MG 05/18/2019 12:00:00 AM EDT active 1 tablet eCW1 ([facility]) atorvastatin 80 MG Oral Tablet Atorvastatin Calcium 80 MG Atorvastatin Calcium 80 MG 05/18/2019 12:00:00 AM EDT active 1 tablet eCW1 ([facility]) 25 mg 05/18/2019 12:00:00 AM EDT tablet 28 TAKE 1 TABLET BY MOUTH BEFORE BEDTIME NEEDED TAKE 1 TABLET BY MOUTH BEFORE BEDTIME NEEDED SOLD: 06/17/2019 [facility] Lancets - Lancets - 05/18/2019 12:00:00 AM EDT act rj Lancets - eCW1 ([facility]) 80 mg 05/18/2019 12:00:00 AM EDT tablet 30 TAKE 1 TABLET BY MOUTH ONCE A DAY TAKE 1 TABLET BY MOUTH ONCE A DAY SOLD: 05/20/2019 [facility] 33 gauge 05/18/2019 12:00:00 AM EDT misc 100 USE DIRECTED FOUR TIMES A DAY USE DIRECTED FOUR TIMES A DAY SOLD: 06/14/2019 [facility] 25 mg 05/18/2019 12:00:00 AM EDT tablet 28 TAKE 1 TABLET BY MOUTH BEFORE BEDTIME NEEDED TAKE 1 TABLET BY MOUTH BEFORE BEDTIME NEEDED SOLD: 05/20/2019 [facility] atorvastatin 80 MG Oral Tablet Atorvastatin Calcium 80 MG Atorvastatin Calcium 80 MG 05/18/2019 12:00:00 AM EDT 1.0 {tablet} activ e Atorvastatin Calcium 80 MG eCW1 ([facility]) BLOOD SUGAR DIAGNOSTIC 04/28/2019 12:00:00 AM EDT strip 125 DIRECTED 3X/DAY DAY BEFORE MEALS & NEEDED IF LIGHTHEADED/DIZZY/NAUSEA/VOMITING DIRECTED 3X/DAY DAY BEFORE MEALS & NEEDED IF LIGHTHEADED/DIZZY/NAUSEA/VOMITING SOLD: 06/10/2019 [facility] BLOOD SUGAR DIAGNOSTIC 04/28/2019 12:00:00 AM EDT strip 125 DIRECTED 3X/DAY DAY BEFORE MEALS & NEEDED IF LIGHTHEADED/DIZZY/NAUSEA/VOMITING DIRECTED 3X/DAY DAY BEFORE MEALS & NEEDED IF LIGHTHEADED/DIZZY/NAUSEA/VOMITING SOLD: 05/01/2019 [facility] BLOOD SUGAR DIAGNOSTIC 04/28/2019 12:00:00 AM EDT strip 125 DIRECTED 3X/DAY DAY BEFORE MEALS & NEEDED IF LIGHTHEADED/DIZZY/NAUSEA/VOMITING DIRECTED 3X/DAY DAY BEFORE MEALS & NEEDED IF LIGHTHEADED/DIZZY/NAUSEA/VOMITING SOLD: 07/18/2019 [facility] 0.75 mg/0.5 mL 04/23/2019 12:00:00 AM EDT pen injector 2 USE TO INJECT THE CONTENTS OF 1 PEN ONCE WEEKLY USE TO INJECT THE CONTENTS OF 1 PEN ONCE WEEKLY SOLD: 2019 [facility] 0.5 ML dulaglutide 1.5 MG/ML Auto-Injector [Trulicity] Trulicity 0.75 MG/0.5ML Trulicity 0.75 MG/0.5ML 04/23/2019 12:00:00 AM EDT active as directed eCW1 ([facility]) 0.5 ML dulaglutide 1.5 MG/ML Auto-Injector [Trulicity] Trulicity 0.75 MG/0.5ML Trulicity 0.75 MG/0.5ML 04/23/2019 12:00:00 AM EDT active as directed eCW1 ([facility]) 81 mg 04/21/2019 12:00:00 AM EDT tablet,delayed release (DR/EC) 30 TAKE 1 TABLET BY MOUTH ONCE A DAY TAKE 1 TABLET BY MOUTH ONCE A DAY SOLD: 04/21/2019 [facility] 81 mg 04/21/2019 12:00:00 AM EDT tablet,delayed release (DR/EC) 30 TAKE 1 TABLET BY MOUTH ONCE A DAY TAKE 1 TABLET BY MOUTH ONCE A DAY SOLD: 05/20/2019 [facility] 81 mg 04/21/2019 12:00:00 AM EDT tablet,delayed release (DR/EC) 30 TAKE 1 TABLET BY MOUTH ONCE A DAY TAKE 1 TABLET BY MOUTH ONCE A DAY SOLD: 09/12/2019 [facility] 81 mg 04/21/2019 12:00:00 AM EDT tablet,delayed release (DR/EC) 30 TAKE 1 TABLET BY MOUTH ONCE A DAY TAKE 1 TABLET BY MOUTH ONCE A DAY SOLD: 07/15/2019 [facility] 40 mg 04/21/2019 12:00:00 AM EDT tablet 30 TAKE ONE TABLET BY MOUTH EVERY DAY TAKE ONE TABLET BY MOUTH EVERY DAY SOLD: 04/22/2019 [facility] 81 mg 04/21/2019 12:00:00 AM EDT tablet,delayed release (DR/EC) 30 TAKE 1 TABLET BY MOUTH ONCE A DAY TAKE 1 TABLET BY MOUTH ONCE A DAY SOLD: 06/17/2019 [facility] 81 mg 04/21/2019 12:00:00 AM EDT tablet,delayed release (DR/EC) 30 TAKE 1 TABLET BY MOUTH ONCE A DAY TAKE 1 TABLET BY MOUTH ONCE A DAY SOLD: 08/13/2019 [facility] Aspirin 81 MG Delayed Release Oral Tablet Aspirin 81 MG 04/20/2019 12:00:00 AM EDT active 1 tablet eCW1 ([facility]) quetiapine 25 MG Oral Tablet [Seroquel] Seroquel 25 MG Seroq uel 25 MG 04/20/2019 12:00:00 AM EDT active 1 table t at bedtime eCW1 ([facility]) quetiapine 25 MG Oral Tablet [Seroquel] Seroquel 25 MG Seroq uel 25 MG 04/20/2019 12:00:00 AM EDT active 1 table t at bedtime eCW1 ([facility]) quetiapine 25 MG Oral Tablet [Seroquel] Seroquel 25 MG Seroq uel 25 MG 04/20/2019 12:00:00 AM EDT active 1 table t at bedtime eCW1 ([facility]) atorvastatin 40 MG Oral Tablet Atorvastatin Calcium 40 MG Atorvastatin Calcium 40 MG 04/20/2019 12:00:00 AM EDT active 1 tablet eCW1 ([facility]) 25 mg 04/20/2019 12:00:00 AM EDT tablet 28 TAKE 1 TABLET BY MOUTH BEFORE BEDTIME NEEDED TAKE 1 TABLET BY MOUTH BEFORE BEDTIME NEEDED SOLD: 04/21/2019 [facility] Aspirin 81 MG Delayed Release Oral Tablet Aspirin 81 MG 04/20/2019 12:00:00 AM EDT active 1 tablet eCW1 ([facility]) Aspirin 81 MG Delayed Release Oral Tablet Aspirin 81 MG 04/20/2019 12:00:00 AM EDT 1.0 {tablet} active Aspirin 81 MG eCW1 ([facility]) Aspirin 81 MG Delayed Release Oral Tablet Aspirin 81 MG 04/20/2019 12:00:00 AM EDT active 1 tablet eCW1 ([facility]) quetiapine 25 MG Oral Tablet [Seroquel] Seroquel 25 MG Seroq uel 25 MG 04/20/2019 12:00:00 AM EDT active 1 table t at bedtime eCW1 ([facility]) Aspirin 81 MG Delayed Release Oral Tablet Aspirin 81 MG 04/20/2019 12:00:00 AM EDT active 1 tablet eCW1 ([facility]) Trazodone Hydrochloride 50 MG Oral Tablet Trazodone HC l 50 MG Trazodone HCl 50 MG 03/02/2019 12:00:00 AM EST active 1 tablet at bedtime as needed eCW1 ([facility]) Trazodone Hydrochloride 50 MG Oral Tablet Trazodone HC l 50 MG Trazodone HCl 50 MG 03/02/2019 12:00:00 AM EST suspended 1 tablet at bedtime as needed eCW1 ([facility]) Paroxetine 20 MG Oral Tablet [Paxil] Paxil 20 MG Paxil 20 MG 03/02/2019 12:00:00 AM EST active 1 tablet in the morning eCW1 ([facility]) Paroxetine 20 MG Oral Tablet [Paxil] Paxil 20 MG Paxil 20 MG 03/02/2019 12:00:00 AM EST suspended 1 tablet in t he morning eCW1 ([facility]) Paroxetine 20 MG Oral Tablet [Paxil] Paxil 20 MG Paxil 20 MG 03/02/2019 12:00:00 AM EST 1.0 {tablet_in_the_morning} active Paxil 20 MG eCW1 ([facility]) 20 mg 03/02/2019 12:00:00 AM EST tablet 30 TAKE ONE TABLET BY MOUTH EVERY MORNING TAKE ONE TABLET BY MOUTH EVERY MORNING SOLD: 03/03/2019 [facility] 50 mg 03/02/2019 12:00:00 AM EST tablet 30 TAKE ONE TABLET BY MOUTH DAILY AT BEDTIME NEEDED TAKE ONE TABLET BY MOUTH DAILY AT BEDTIME NEEDED SO LD: 03/03/2019 [facility] Paroxetine 20 MG Oral Tablet [Paxil] Paxil 20 MG Paxil 20 MG 03/02/2019 12:00:00 AM EST suspended 1 tablet in t he morning eCW1 ([facility]) Paroxetine 20 MG Oral Tablet [Paxil] Paxil 20 MG Paxil 20 MG 03/02/2019 12:00:00 AM EST active 1 tablet in the morning eCW1 ([facility]) Trazodone Hydrochloride 50 MG Oral Tablet Trazodone HC l 50 MG Trazodone HCl 50 MG 03/02/2019 12:00:00 AM EST suspended 1 tablet at bedtime as needed eCW1 ([facility]) Trazodone Hydrochloride 50 MG Oral Tablet Trazodone HC l 50 MG Trazodone HCl 50 MG 03/02/2019 12:00:00 AM EST active 1 tablet at bedtime as needed eCW1 ([facility]) Trazodone Hydrochloride 50 MG Oral Tablet Trazodone HC l 50 MG Trazodone HCl 50 MG 03/02/2019 12:00:00 AM EST 1.0 {tablet_at_bedtime_as_needed} active Trazodone HCl 50 MG eCW[facility] Trazodone Hydrochloride 50 MG Oral Tablet Trazodone HC l 50 MG Trazodone HCl 50 MG 03/02/2019 12:00:00 AM EST suspended 1 tablet at bedtime as needed eCW1 ([facility]) Paroxetine 20 MG Oral Tablet [Paxil] Paxil 20 MG Paxil 20 MG 03/02/2019 12:00:00 AM EST suspended 1 tablet in t he morning eCW1 ([facility]) Trazodone Hydrochloride 50 MG Oral Tablet Trazodone HC l 50 MG Trazodone HCl 50 MG 03/02/2019 12:00:00 AM EST 1.0 {tablet_at_bedtime_as_needed} active Trazodone HCl 50 MG eCW1 ([facility] Paroxetine 20 MG Oral Tablet [Paxil] Paxil 20 MG Paxil 20 MG 03/02/2019 12:00:00 AM EST 1.0 {tablet_in_the_morning} active Paxil 20 MG eC ([facility]) 1,000 mg 01/27/2019 12:00:00 AM EST tablet 60 TAKE ONE TABLET BY MOUTH TWICE A DAY WITH MEALS TAKE ONE TABLET BY MOUTH TWICE A DAY WITH MEALS SOLD: 03/03/2019 [facility] 1,000 mg 01/27/2019 12:00:00 AM EST tablet 60 TAKE ONE TABLET BY MOUTH TWICE A DAY WITH MEALS TAKE ONE TABLET BY MOUTH TWICE A DAY WITH MEALS SOLD: 01/30/2019 [facility] 100 unit/mL (3 mL) 01/21/2019 12:00:00 AM EST insulin pen 15 INJECT 40 UNITS UNDER THE SKIN DAILY DIRECTED INJECT 40 UNITS UNDER THE SKIN DAILY DIRECTED SOLD: 05/11/2019 [facility] 100 unit/mL (3 mL) 01/21/2019 12:00:00 AM EST insulin pen 15 INJECT 40 UNITS UNDER THE SKIN DAILY DIRECTED INJECT 40 UNITS UNDER THE SKIN DAILY DIRECTED SOLD: 04/02/2019 [facility] 100 unit/mL (3 mL) 01/21/2019 12:00:00 AM EST insulin pen 15 INJECT 40 UNITS UNDER THE SKIN DAILY DIRECTED INJECT 40 UNITS UNDER THE SKIN DAILY DIRECTED SOLD: 07/22/2019 [facility] 100 unit/mL (3 mL) 01/21/2019 12:00:00 AM EST insulin pen 15 INJECT 40 UNITS UNDER THE SKIN DAILY DIRECTED INJECT 40 UNITS UNDER THE SKIN DAILY DIRECTED SOLD: 06/17/2019 [facility] 100 unit/mL (3 mL) 01/21/2019 12:00:00 AM EST insulin pen 15 INJECT 40 UNITS UNDER THE SKIN DAILY DIRECTED INJECT 40 UNITS UNDER THE SKIN DAILY DIRECTED SOLD: 02/23/2019 [facility] BLOOD SUGAR DIAGNOSTIC 01/15/2019 12:00:00 AM EST strip 125 DIRECTED 3X/DAY BEFORE MEALS & NEEDED IF DIZZY LIGHT HEADED NAUSEA/VOMIT DIRECTED 3X/DAY BEFORE MEALS & NEEDED IF DIZZY LIGHT HEADED NAUSEA/VOMIT SOLD: 02/26/2019 [facility] BLOOD SUGAR DIAGNOSTIC 01/15/2019 12:00:00 AM EST strip 125 DIRECTED 3X/DAY BEFORE MEALS & NEEDED IF DIZZY LIGHT HEADED NAUSEA/VOMIT DIRECTED 3X/DAY BEFORE MEALS & NEEDED IF DIZZY LIGHT HEADED NAUSEA/VOMIT SOLD: 04/05/2019 [facility] 90 mcg/actuation 01/11/2019 12:00:00 AM EST HFA aerosol inha ler 18 INHALE 2 PUFFS BY MOUTH EVERY 6 HOURS NEEDED INHALE 2 PUFFS BY MOUTH EVERY 6 HOURS NEEDED SOLD: 04/16/2019 [facility] 20-25 mg 01/11/2019 12:00:00 AM EST tablet 30 TAKE 1 TABLET BY MOUTH ONCE A DAY TAKE 1 TABLET BY MOUTH ONCE A DAY SOLD: 02/11/2019 [facility] 20-25 mg 01/11/2019 12:00:00 AM EST tablet 30 TAKE 1 TABLET BY MOUTH ONCE A DAY TAKE 1 TABLET BY MOUTH ONCE A DAY SOLD: 04/16/2019 [facility] 90 mcg/actuation 01/11/2019 12:00:00 AM EST HFA aerosol inha ler 18 INHALE 2 PUFFS BY MOUTH EVERY 6 HOURS NEEDED INHALE 2 PUFFS BY MOUTH EVERY 6 HOURS NEEDED SOLD: 05/15/2019 [facility] 20-25 mg 01/11/2019 12:00:00 AM EST tablet 30 TAKE 1 TABLET BY MOUTH ONCE A DAY TAKE 1 TABLET BY MOUTH ONCE A DAY SOLD: 03/12/2019 [facility] 90 mcg/actuation 01/11/2019 12:00:00 AM EST HFA aerosol inha ler 18 INHALE 2 PUFFS BY MOUTH EVERY 6 HOURS NEEDED INHALE 2 PUFFS BY MOUTH EVERY 6 HOURS NEEDED SOLD: 02/11/2019 [facility] 20-25 mg 01/11/2019 12:00:00 AM EST tablet 30 TAKE 1 TABLET BY MOUTH ONCE A DAY TAKE 1 TABLET BY MOUTH ONCE A DAY SOLD: 06/10/2019 [facility] 20-25 mg 01/11/2019 12:00:00 AM EST tablet 30 TAKE 1 TABLET BY MOUTH ONCE A DAY TAKE 1 TABLET BY MOUTH ONCE A DAY SOLD: 05/15/2019 [facility] 90 mcg/actuation 01/11/2019 12:00:00 AM EST HFA aerosol inha ler 18 INHALE 2 PUFFS BY MOUTH EVERY 6 HOURS NEEDED INHALE 2 PUFFS BY MOUTH EVERY 6 HOURS NEEDED SOLD: 06/14/2019 [facility] 90 mcg/actuation 01/11/2019 12:00:00 AM EST HFA aerosol inha ler 18 INHALE 2 PUFFS BY MOUTH EVERY 6 HOURS NEEDED INHALE 2 PUFFS BY MOUTH EVERY 6 HOURS NEEDED SOLD: 03/12/2019 [facility] ALCOHOL ANTISEPTIC PADS 01/10/2019 12:00:00 AM EST pads, med icated 100 USE DIRECTED THREE TIMES A DAY FOR BLOOD GLUCOSE CHECKS USE DIRECTED THREE TIMES A DAY FOR BLOOD GLUCOSE CHECKS SOLD: 12/04/2019 [facility] ALCOHOL ANTISEPTIC PADS 01/10/2019 12:00:00 AM EST pads, med icated 100 USE DIRECTED THREE TIMES A DAY FOR BLOOD GLUCOSE CHECKS USE DIRECTED THREE TIMES A DAY FOR BLOOD GLUCOSE CHECKS SOLD: 10/12/2019 [facility] atorvastatin 20 MG Oral Tablet ATORVASTATIN CALCIUM 12/31/2018 1 2:00:00 AM EST tablet 30 TAKE ONE TABLET BY MOUTH EVERY D AY TAKE ONE TABLET BY MOUTH EVERY DAY SOLD: 04/02/2019 [facility] atorvastatin 20 MG Oral Tablet ATORVASTATIN CALCIUM 12/31/2018 1 2:00:00 AM EST tablet 30 TAKE ONE TABLET BY MOUTH EVERY D AY TAKE ONE TABLET BY MOUTH EVERY DAY SOLD: 03/03/2019 [facility] atorvastatin 20 MG Oral Tablet ATORVASTATIN CALCIUM 12/31/2018 1 2:00:00 AM EST tablet 30 TAKE ONE TABLET BY MOUTH EVERY D AY TAKE ONE TABLET BY MOUTH EVERY DAY SOLD: 01/30/2019 [facility] 1,000 mg 12/30/2018 12:00:00 AM EST tablet 60 TAKE ONE TABLET BY MOUTH TWICE A DAY WITH A MEAL TAKE ONE TABLET BY MOUTH TWICE A DAY WITH A MEAL SOLD: 07/22/2019 [facility] 1,000 mg 12/30/2018 12:00:00 AM EST tablet 60 TAKE ONE TABLET BY MOUTH TWICE A DAY WITH A MEAL TAKE ONE TABLET BY MOUTH TWICE A DAY WITH A MEAL SOLD: 06/24/2019 [facility] 1,000 mg 12/30/2018 12:00:00 AM EST tablet 60 TAKE ONE TABLET BY MOUTH TWICE A DAY WITH A MEAL TAKE ONE TABLET BY MOUTH TWICE A DAY WITH A MEAL SOLD: 03/27/2019 [facility] 1,000 mg 12/30/2018 12:00:00 AM EST tablet 60 TAKE ONE TABLET BY MOUTH TWICE A DAY WITH A MEAL TAKE ONE TABLET BY MOUTH TWICE A DAY WITH A MEAL SOLD: 05/26/2019 [facility] 1,000 mg 12/30/2018 12:00:00 AM EST tablet 60 TAKE ONE TABLET BY MOUTH TWICE A DAY WITH A MEAL TAKE ONE TABLET BY MOUTH TWICE A DAY WITH A MEAL SOLD: 2019 [facility] Insurance Providers Payer name Policy type / Coverage type Policy ID Covered libertarian ID Covered libertarian's relationship to desai Policy Desai Plan Information [facility] COMMUNITY PLAN [facility] [id number] SP [id number] [facility] O [id number] S [id number] [facility] COMMUNITY PL[facility] [id number] SP [id number] MEDICAID [id number] SP [id number] [facility] [id number] SP [id number] SELF PAY ONLY [id number] SP [id number] MEDICAID [id number] SP [id number] Problems, Conditions, and Diagnoses Code Display Name Description Problem Type Effective Dates Data Source(s) K21.9 [id number] Gastroesophageal reflux disease without e sophagitis Problem 12/30/2019 12:00:00 AM EST eCW1 ([facility]) E78.2 [id number] Mixed hyperlipidemia Problem 05/18/2019 12:0 0:00 AM EDT eCW1 ([facility]) E78.2 [id number] Mixed hyperlipidemia Problem 05/18/2019 12:0 0:00 AM EDT eCW1 ([facility]) E11.65 [id number] Type 2 diabetes mellitus with hyperglycem ia Problem 04/20/2019 12:00:00 AM EDT eCW1 ([facility]) Z79.4 [id number] skilled nursing (current) use of insulin Proble m 04/20/2019 12:00:00 AM EDT eCW1 ([facility]) F51.04 [id number] Psychophysiological insomnia Problem 04/20/2019 12:00:00 AM EDT eCW1 ([facility]) Z79.4 [id number] intermediate frame tender (current) use of insulin Proble 04/20/2019 12:00:00 AM EDT eCW1 ([facility]) F51.04 [id number] Psychophysiological insomnia Problem 04/20/2019 12:00:00 AM EDT eCW1 ([facility]) E11.65 [id number] Type 2 diabetes mellitus with hyperglycem ia Problem 04/20/2019 12:00:00 AM EDT eCW1 ([facility]) G47.00 [id number] Insomnia, unspecified type Problem 0 12:00:00 AM EST eCW1 ([facility]) F41.9 [id number] Anxiety Problem 03/02/2019 12:00:00 AM ES T eCW1 ([facility]) G47.00 [id number] Insomnia, unspecified type Problem 0 12:00:00 AM EST eCW1 ([facility]) F41.9 [id number] Anxiety Problem 03/02/2019 12:00:00 AM ES T eCW1 ([facility]) Social History Code Duration Value Status Description Data Source(s ) Smoking 02/13/2020 12:00:00 AM EST Current Smoker completed Curre nt Smoker eCW1 ([facility]) Smoking 02/13/2020 12:00:00 AM EST Current Smoker completed Curre nt Smoker eCW1 ([facility]) Smoking 11/29/2019 12:00:00 AM EDT Current Smoker completed Curre nt Smoker eCW1 ([facility]) Smoking 08/30/2019 12:00:00 AM EDT Current Smoker completed Curre nt Smoker eCW1 ([facility]) Smoking 08/30/2019 12:00:00 AM EDT Current Smoker completed Justine nt Smoker eCW1 ([facility]) Vital Signs ID Date Data Source UNK Name Value Range Interpretation Code Description Data Source(s) Diastolic blood pressure 70 mm[Hg] 70 mm[Hg] eCW1 ([facility]) Systolic blood pressure 142 mm[Hg] 142 mm[Hg] e CW1 ([facility]) Body temperature 97.6 [degF] 97.6 [degF] eCW1 ( [facility]) Respiratory rate 18 /min 18 /min eCW1 ([facility]) Heart rate 86 /min 86 /min eCW1 ([facility]) Body mass index (BMI) [Ratio] 28.75 kg/m2 28.75 kg/m2 W1 ([facility]) Body height 72 [in_i] 72 [in_i] eCW1 ([facility]) Body weight 212 [lb_av] 212 [lb_av] eCW1 ([facility]) Diastolic blood pressure 80 mm[Hg] 80 mm[Hg] eCW1 ([facility]) Systolic blood pressure 140 mm[Hg] 140 mm[Hg] e CW1 ([facility]) Body temperature 98.5 [degF] 98.5 [degF] eCW1 ( [facility]) Respiratory rate 20 /min 20 /min eCW1 ([facility]) Heart rate 90 /min 90 /min eCW1 ([facility]) Body mass index (BMI) [Ratio] 27.80 kg/m2 27.80 kg/m2 W1 ([facility]) Body height 72 [in_i] 72 [in_i] eCW1 ([facility]) Body weight 205 [lb_av] 205 [lb_av] eCW1 ([facility]) Diastolic blood pressure 60 mm[Hg] 60 mm[Hg] eCW1 ([facility]) Systolic blood pressure 138 mm[Hg] 138 mm[Hg] e CW1 ([facility]) Body temperature 98.7 [degF] 98.7 [degF] eCW1 ( [facility]) Respiratory rate 18 /min 18 /min eCW1 ([facility]) Heart rate 87 /min 87 /min eCW1 ([facility]) Body mass index (BMI) [Ratio] 28.26 kg/m2 28.26 kg/m2 eCW1 ([facility]) Body height 72 [in_us] 72 [in_us] eCW1 ([facility]) Body weight Measured 208.4 [lb_av] 208.4 [lb_av ] eCW1 ([facility]) Diastolic blood pressure 70 mm[Hg] 70 mm[Hg] eCW1 ([facility]) Systolic blood pressure 138 mm[Hg] 138 mm[Hg] e CW1 ([facility]) Body temperature 97.9 [degF] 97.9 [degF] eCW1 ( [facility]) Respiratory rate 18 /min 18 /min eCW1 ([facility]) Heart rate 78 /min 78 /min eCW1 ([facility]) Body mass index (BMI) [Ratio] 28.53 kg/m2 28.53 kg/m2 W1 ([facility]) Body height 72 [in_us] 72 [in_us] eCW1 ([facility]) Body weight Measured 210.4 [lb_av] 210.4 [lb_av ] eCW1 ([facility]) Diastolic blood pressure 80 mm[Hg] 80 mm[Hg] eCW1 ([facility]) Systolic blood pressure 138 mm[Hg] 138 mm[Hg] e CW1 ([facility]) Body temperature 98.5 [degF] 98.5 [degF] eCW1 ( [facility]) Respiratory rate 18 /min 18 /min eCW1 ([facility]) Heart rate 75 /min 75 /min eCW1 ([facility]) Body mass index (BMI) [Ratio] 28.97 kg/m2 28.97 kg/m2 eCW1 ([facility]) Body height 72 [in_us] 72 [in_us] eCW1 ([facility]) Body weight Measured 213.6 [lb_av] 213.6 [lb_av ] eCW1 ([facility]) Diastolic blood pressure 72 mm[Hg] 72 mm[Hg] eCW1 ([facility]) Systolic blood pressure 130 mm[Hg] 130 mm[Hg] e CW1 ([facility]) Body temperature 97.7 [degF] 97.7 [degF] eCW1 ( [facility]) Respiratory rate 18 /min 18 /min eCW1 ([facility]) Heart rate 94 /min 94 /min eCW1 ([facility]) Body mass index (BMI) [Ratio] 27.83 kg/m2 27.83 kg/m2 eCW1 ([facility]) Body height 72 [in_us] 72 [in_us] eCW1 ([facility]) Body weight Measured 205.2 [lb_av] 205.2 [lb_av ] eCW1 ([facility]) Diastolic blood pressure 80 mm[Hg] 80 mm[Hg] eCW1 ([facility]) Systolic blood pressure 162 mm[Hg] 162 mm[Hg] e CW1 ([facility]) Body temperature 98.6 [degF] 98.6 [degF] eCW1 ( [facility]) Respiratory rate 18 /min 18 /min eCW1 ([facility]) Heart rate 86 /min 86 /min eCW1 ([facility]) Body mass index (BMI) [Ratio] 27.80 kg/m2 27.80 kg/m2 eCW1 ([facility]) Body height 72 [in_us] 72 [in_us] eCW1 ([facility]) Body weight Measured 205 [lb_av] 205 [lb_av] eC W1 ([facility]) Patient Treatment Plan of Care Planned Activity Planned Date Details Description Data Source (s) Cimetidine 200 MG Oral Tablet 12/30/2019 12:00:00 AM EST eCW1 ([facility]) Rosuvastatin calcium 40 MG Oral Tablet [Crestor] 12/30/2019 12:00:0 0 AM EST eCW1 ([facility]) Cimetidine 200 MG Oral Tablet 12/30/2019 12:00:00 AM EST eCW1 ([facility]) Rosuvastatin calcium 40 MG Oral Tablet [Crestor] 12/30/2019 12:00:0 0 AM EST eCW1 ([facility]) Basaglar KwikPen 100 UNIT/ML 06/21/2019 12:00:00 AM EDT eCW1 ([facility]) Basaglar KwikPen 100 UNIT/ML 06/21/2019 12:00:00 AM EDT eCW1 ([facility]) 0.5 ML dulaglutide 3 MG/ML Auto-Injector [Trulicity] 12:00:00 AM EDT eCW1 ([facility]) Lancets - 05/18/2019 12:00:00 AM EDT e CW1 ([facility]) Lancets - 05/18/2019 12:00:00 AM EDT e CW1 ([facility]) atorvastatin 80 MG Oral Tablet 05/18/2019 12:00:00 AM EDT eCW1 ([facility]) atorvastatin 80 MG Oral Tablet 05/18/2019 12:00:00 AM EDT eCW1 ([facility]) Lancets - 05/18/2019 12:00:00 AM EDT e CW1 ([facility]) atorvastatin 80 MG Oral Tablet 05/18/2019 12:00:00 AM EDT eCW1 ([facility]) 0.5 ML dulaglutide 1.5 MG/ML Auto-Injector [Trulicity] 04/23/2019 12:00:00 AM EDT eCW1 ([facility]) Aspirin 81 MG Delayed Release Oral Tablet 04/20/2019 12:00:00 AM ED T eCW1 ([facility]) Aspirin 81 MG Delayed Release Oral Tablet 04/20/2019 12:00:00 AM ED T eCW1 ([facility]) quetiapine 25 MG Oral Tablet [Seroquel] 04/20/2019 12:00:00 AM EDT eCW1 ([facility]) atorvastatin 40 MG Oral Tablet 04/20/2019 12:00:00 AM EDT eCW1 ([facility]) Aspirin 81 MG Delayed Release Oral Tablet 04/20/2019 12:00:00 AM ED T eCW1 ([facility]) quetiapine 25 MG Oral Tablet [Seroquel] 04/20/2019 12:00:00 AM EDT eCW1 ([facility]) Trazodone Hydrochloride 50 MG Oral Tablet 03/02/2019 12:00:00 AM ES T eCW1 ([facility]) Paroxetine 20 MG Oral Tablet [Paxil] 03/02/2019 12:00:00 AM EST eCW1 ([facility])
--- OUTSIDE RECORDS SUMMARY | 2020-03-25 13:05 | CCD ---
Author Author [facility] Organization [facility] Address Unknown Phone Unavailable Support Name Relationship Address Phone LAYLA COHEN Next Of Kin [address] [place] [address] JOAQUIN COHEN Next Of Kin [address] [place] [address] RE Next Of Kin Unknown Unavailable SUSU SALMERON Next Of Kin [address] [place] [address] LAYLA Cohen ECON [address] [place] [address] Unavailable Joaquin Cohen ECON [address] [place] [address] Unavailable Re-disclosure Warning The records that you [...] is protected by Article 27-F of the [place] State Public Health law. If you continue you may have access to information: Regarding HIV / AIDS; Provided by facilities licensed or operated by the [facility] Office of Mental Health; or Provided by the [facility] Office for People With Developmental Disabilities. If such information is present, then the following [facility] mandated warning applies: This information has [...] law may result in a fine or custodial sentence or both. A general authorization for the release of medical or other information is NOT sufficient authorization for further disc losure. Encounters Encounter Providers Location Date Indications Data Source(s ) Unknown [address] [place] [phone] 02/13/2020 12:00:00 AM EST eCW1 ([facility]) Unknown [address] [facility] [id number] 02/08/2020 12:00:00 AM EST eCW1 ([facility]) Outpatient [address] [place] [phone] 11/29/2019 12:00:00 AM EDT eCW1 ([facility]) Unknown [address] [facility] [id number] 11/21/2019 12:00:00 AM EDT eCW1 ([facility]) Outpatient [address] [facility] [id number] 08/30/2019 12:00:00 AM EDT eCW1 ([facility]) [address] [phone] 06/22/2019 12:00:00 AM EDT eCW1 ([facility]) [facility] [address] [place] [phone] 06/20/2019 12:00:00 AM EDT eCW1 ([facility]) [facility] [address] [place] [phone] 06/17/2019 12:00:00 AM EDT eCW1 ([facility]) [facility] [address] [facility] [id number] 06/17/2019 12:00:00 AM EDT eCW1 ([facility]) [facility] GME Resident [address] [place] [phone] 06/16/2019 12:00:00 AM EDT eCW1 ([facility]) [address] [phone] 05/19/2019 12:00:00 AM EDT eCW1 ([facility]) [facility] G[facility] Resident [address] [place] [phone] 05/18/2019 12:00:00 AM EDT eCW1 ([facility]) [address] [phone] 04/23/2019 12:00:00 AM EDT eCW1 ([facility]) [facility] Resident [address] [place] [phone] 04/20/2019 12:00:00 AM EDT eCW1 ([facility]) [facility] Natalie [address] [place] [phone] 04/20/2019 12:00:00 AM EDT eCW1 ([facility]) [address] [phone] 04/20/2019 12:00:00 AM EDT eCW1 ([facility]) [facility] G[facility] Resident [address] [place] [phone] 03/02/2019 12:00:00 AM EST eCW1 ([facility]) [address] [phone] 02/28/2019 12:00:00 AM EST eCW1 ([facility]) [facility] G[facility] Resident [address] [place] [phone] 01/31/2019 12:00:00 AM EST eCW1 ([facility]) [facility] [place] [address] [place] [phone] 01/31/2019 12:00:00 AM EST eCW1 ([facility] Medications Medication Brand Name Start Date Product [...] 1.0 {tablet} active Crestor 40 MG eCW1 ([facility]) Rosuvastatin calcium 40 MG Oral Tablet [Crestor] Crestor 40 MG Crestor 40 MG 12/30/2019 12:00:00 AM EST 1.0 {tablet} active Crestor 40 MG eCW1 ([facility]) Rosuvastatin calcium 40 MG Oral Tablet ROSUVASTATIN [...] 1.0 {tablet_at_bedtime} active Cimetidine 200 MG eCW1 ([facility]) Cimetidine 200 MG Oral Tablet Cimetidine 200 MG 12/30/2019 12:00:00 AM EST 1.0 {tablet_at_bedtime} active Cimetidine 200 MG eCW1 ([facility]) 200 mg 12/30/2019 12:00:00 AM EST tablet [...] DIRECTED DAILY USE DIRECTED DAILY SOLD: 10/18/2019 [facility] 29 gauge x 1/2" 06/22/2019 12:00:00 AM EDT needle 30 USE DIRECTED DAILY USE DIRECTED DAILY SOLD: 06/24/2019 [facility] Basaglar KwikPen 100 UNIT/ML Basaglar KwikPen 100 UNIT/ML 12:00:00 AM EDT active as directed eCW1 ([facility]) Basaglar KwikPen 100 UNIT/ML Basaglar KwikPen 100 UNIT/ML 12:00:00 AM EDT active as directed eCW1 ([facility]) ALCOHOL ANTISEPTIC PADS 06/17/2019 12:00:00 AM EDT [...] UNDER THE SKIN ONCE WEEKLY SOLD: 05/26/2019 [email or web address] 0.5 ML dulaglutide 3 MG/ML Auto-Injector [Trulicity] T rulicity 1.5 MG/0.5ML Trulicity 1.5 MG/0.5ML 05/19/2019 12:00:00 AM EDT active as directed eCW1 ([facility]) Lancets - Lancets - 05/18/2019 12:00:00 AM EDT act rj as directed eCW1 ([facility]) Lancets - Lancets - 05/18/2019 12:00:00 AM EDT act rj Lancets - eCW1 ([facility]) Lancets - Lancets - 05/18/2019 12:00:00 AM EDT act rj Lancets - eCW1 ([facility]) Lancets - Lancets - 05/18/2019 12:00:00 AM EDT act rj Lancets - eCW1 ([facility]) atorvastatin 80 MG Oral Tablet Atorvastatin Calcium 80 MG Atorvastatin Calcium 80 MG 05/18/2019 12:00:00 AM EDT 1.0 {tablet} activ e Atorvastatin Calcium 80 MG eCW1 ([facility]) Lancets - Lancets - 05/18/2019 12:00:00 AM EDT act rj as directed eCW1 ([facility]) 33 gauge 05/18/2019 12:00:00 AM EDT misc 100 USE DIRECTED FOUR TIMES A DAY USE DIRECTED FOUR TIMES A DAY SOLD: 05/20/2019 [facility] Lancets - Lancets - 05/18/2019 12:00:00 AM EDT act rj as directed eCW1 ([facility]) atorvastatin 80 MG Oral Tablet Atorvastatin Calcium 80 MG Atorvastatin Calcium 80 MG 05/18/2019 12:00:00 AM EDT 1.0 {tablet} activ e Atorvastatin Calcium 80 MG eCW1 ([facility]) Lancets - Lancets - 05/18/2019 12:00:00 AM EDT act rj Lancets - eCW1 ([facility]) atorvastatin 80 MG Oral Tablet Atorvastatin Calcium 80 MG Atorvastatin Calcium 80 MG 05/18/2019 12:00:00 AM EDT active 1 tablet eCW1 ([facility]) atorvastatin 80 MG Oral Tablet Atorvastatin Calcium 80 MG Atorvastatin Calcium 80 MG 05/18/2019 12:00:00 AM EDT active 1 tablet eCW1 ([facility]) atorvastatin 80 MG Oral Tablet Atorvastatin Calcium 80 MG Atorvastatin Calcium 80 MG 05/18/2019 12:00:00 AM EDT active 1 tablet eCW1 ([facility]) 25 mg 05/18/2019 12:00:00 AM EDT tablet 28 TAKE 1 TABLET BY MOUTH BEFORE BEDTIME NEEDED TAKE 1 TABLET BY MOUTH BEFORE BEDTIME NEEDED SOLD: 06/17/2019 [facility] Lancets - Lancets - 05/18/2019 12:00:00 AM EDT act rj Lancets - eCW1 ([facility]) 80 mg 05/18/2019 12:00:00 AM EDT tablet [...] activ e Atorvastatin Calcium 80 MG eCW1 ([facility]) BLOOD SUGAR DIAGNOSTIC 04/28/2019 12:00:00 AM EDT [...] 12:00:00 AM EDT active as directed eCW1 ([facility]) 0.5 ML dulaglutide 1.5 MG/ML Auto-Injector [Trulicity] Trulicity 0.75 MG/0.5ML Trulicity 0.75 MG/0.5ML 04/23/2019 12:00:00 AM EDT active as directed eCW1 ([facility]) 81 mg 04/21/2019 12:00:00 AM EDT tablet,delayed [...] 12:00:00 AM EDT active 1 tablet eCW1 ([facility]) quetiapine 25 MG Oral Tablet [Seroquel] Seroquel 25 MG Seroq uel 25 MG 04/20/2019 12:00:00 AM EDT active 1 table t at bedtime eCW1 ([facility]) quetiapine 25 MG Oral Tablet [Seroquel] Seroquel 25 MG Seroq uel 25 MG 04/20/2019 12:00:00 AM EDT active 1 table t at bedtime eCW1 ([facility]) quetiapine 25 MG Oral Tablet [Seroquel] Seroquel 25 MG Seroq uel 25 MG 04/20/2019 12:00:00 AM EDT active 1 table t at bedtime eCW1 ([facility]) atorvastatin 40 MG Oral Tablet Atorvastatin Calcium 40 MG Atorvastatin Calcium 40 MG 04/20/2019 12:00:00 AM EDT active 1 tablet eCW1 ([facility]) 25 mg 04/20/2019 12:00:00 AM EDT tablet 28 TAKE 1 TABLET BY MOUTH BEFORE BEDTIME NEEDED TAKE 1 TABLET BY MOUTH BEFORE BEDTIME NEEDED SOLD: 04/21/2019 [facility] Aspirin 81 MG Delayed Release Oral Tablet Aspirin 81 MG 04/20/2019 12:00:00 AM EDT active 1 tablet eCW1 ([facility]) Aspirin 81 MG Delayed Release Oral Tablet Aspirin 81 MG 04/20/2019 12:00:00 AM EDT 1.0 {tablet} active Aspirin 81 MG eCW1 ([facility]) Aspirin 81 MG Delayed Release Oral Tablet Aspirin 81 MG 04/20/2019 12:00:00 AM EDT active 1 tablet eCW1 ([facility]) quetiapine 25 MG Oral Tablet [Seroquel] Seroquel 25 MG Seroq uel 25 MG 04/20/2019 12:00:00 AM EDT active 1 table t at bedtime eCW1 ([facility]) Aspirin 81 MG Delayed Release Oral Tablet Aspirin 81 MG 04/20/2019 12:00:00 AM EDT active 1 tablet eCW1 ([facility]) Trazodone Hydrochloride 50 MG Oral Tablet Trazodone HC l 50 MG Trazodone HCl 50 MG 03/02/2019 12:00:00 AM EST active 1 tablet at bedtime as needed eCW1 ([facility]) Trazodone Hydrochloride 50 MG Oral Tablet Trazodone HC l 50 MG Trazodone HCl 50 MG 03/02/2019 12:00:00 AM EST suspended 1 tablet at bedtime as needed eCW1 ([facility]) Paroxetine 20 MG Oral Tablet [Paxil] Paxil 20 MG Paxil 20 MG 03/02/2019 12:00:00 AM EST active 1 tablet in the morning eCW1 ([facility]) Paroxetine 20 MG Oral Tablet [Paxil] Paxil 20 MG Paxil 20 MG 03/02/2019 12:00:00 AM EST suspended 1 tablet in t he morning eCW1 ([facility]) Paroxetine 20 MG Oral Tablet [Paxil] Paxil 20 MG Paxil 20 MG 03/02/2019 12:00:00 AM EST 1.0 {tablet_in_the_morning} active Paxil 20 MG eCW1 ([facility]) 20 mg 03/02/2019 12:00:00 AM EST tablet [...] 1 tablet in t he morning eCW1 ([facility]) Paroxetine 20 MG Oral Tablet [Paxil] Paxil 20 MG Paxil 20 MG 03/02/2019 12:00:00 AM EST active 1 tablet in the morning eCW1 ([facility]) Trazodone Hydrochloride 50 MG Oral Tablet Trazodone HC l 50 MG Trazodone HCl 50 MG 03/02/2019 12:00:00 AM EST suspended 1 tablet at bedtime as needed eCW1 ([facility]) Trazodone Hydrochloride 50 MG Oral Tablet Trazodone HC l 50 MG Trazodone HCl 50 MG 03/02/2019 12:00:00 AM EST active 1 tablet at bedtime as needed eCW1 ([facility]) Trazodone Hydrochloride 50 MG Oral Tablet Trazodone HC l 50 MG Trazodone HCl 50 MG 03/02/2019 12:00:00 AM EST 1.0 {tablet_at_bedtime_as_needed} active Trazodone HCl 50 MG eCW1 ([facility]) Trazodone Hydrochloride 50 MG Oral Tablet Trazodone HC l 50 MG Trazodone HCl 50 MG 03/02/2019 12:00:00 AM EST suspended 1 tablet at bedtime as needed eCW1 ([facility]) Paroxetine 20 MG Oral Tablet [Paxil] Paxil 20 MG Paxil 20 MG 03/02/2019 12:00:00 AM EST suspended 1 tablet in t he morning eCW1 ([facility]) Trazodone Hydrochloride 50 MG Oral Tablet Trazodone HC l 50 MG Trazodone HCl 50 MG 03/02/2019 12:00:00 AM EST 1.0 {tablet_at_bedtime_as_needed} active Trazodone HCl 50 MG eCW1 ([facility]) Paroxetine 20 MG Oral Tablet [Paxil] Paxil 20 MG Paxil 20 MG 03/02/2019 12:00:00 AM EST 1.0 {tablet_in_the_morning} active Paxil 20 MG eC ([facility]) 1,000 mg 01/27/2019 12:00:00 AM EST tablet [...] A DAY WITH A MEAL SOLD: 06/24/2019 [facility] 1,000 mg 12/30/2018 12:00:00 AM [...] type / Coverage type Policy ID Covered green party ID Covered green party's relationship to desai Policy Desai Plan Information REPLACED BY [facility] [id number] SP [id number] [facility] O [id number] S [id number] REPLACED BY [facility] [id number] SP [id number] MEDICAID [id number] SP [id number] [facility] [id number] SP [id number] SELF PAY ONLY [id number] SP [id number] MEDICAID [id number] SP [id number] Problems, Conditions, and Diagnoses Code Display Name Description Problem Type Effective Dates Data Source(s) K21.9 [id number] Gastroesophageal reflux disease without e sophagitis Problem 12/30/2019 12:00:00 AM EST eCW1 ([facility]) E78.2 [id number] Mixed hyperlipidemia Problem 05/18/2019 12:0 0:00 AM EDT eCW1 ([facility]) E78.2 [id number] Mixed hyperlipidemia Problem 05/18/2019 12:0 0:00 AM EDT eCW1 ([facility]) E11.65 [id number] Type 2 diabetes mellitus with hyperglycem ia Problem 04/20/2019 12:00:00 AM EDT eCW1 ([facility]) Z79.4 [id number] nursing home (current) use of insulin Proble m 04/20/2019 12:00:00 AM EDT eCW1 ([facility]) F51.04 [id number] Psychophysiological insomnia Problem 04/20/2019 12:00:00 AM EDT eCW1 ([facility]) 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 04/20/2019 12:00:00 AM EDT eCW1 ([facility]) F51.04 [id number] Psychophysiological insomnia Problem 04/20/2019 12:00:00 AM EDT eCW1 ([facility]) E11.65 [id number] Type 2 diabetes mellitus with hyperglycem ia Problem 04/20/2019 12:00:00 AM EDT eCW1 ([facility]) G47.00 [id number] Insomnia, unspecified type Problem 0 12:00:00 AM EST eCW1 ([facility]) F41.9 [id number] Anxiety Problem 03/02/2019 12:00:00 AM ES T eCW1 ([facility]) G47.00 [id number] Insomnia, unspecified type Problem 0 12:00:00 AM EST eCW1 ([facility]) F41.9 [id number] Anxiety Problem 03/02/2019 12:00:00 AM ES T eCW1 ([facility]) Social History Code Duration Value Status Description Data Source(s ) Smoking 02/13/2020 12:00:00 AM EST Current Smoker completed Curre nt Smoker eCW1 ([facility]) Smoking 02/13/2020 12:00:00 AM EST Current Smoker completed Curre nt Smoker eCW1 ([facility]) Smoking 11/29/2019 12:00:00 AM EDT Current Smoker completed Curre nt Smoker eCW1 ([facility]) Smoking 08/30/2019 12:00:00 AM EDT Current Smoker completed Curre nt Smoker eCW1 ([facility]) Smoking 08/30/2019 12:00:00 AM EDT Current Smoker completed Justine nt Smoker eCW1 ([facility]) Vital Signs ID Date Data Source UNK Name Value Range Interpretation Code Description Data Source(s) Diastolic blood pressure 70 mm[Hg] 70 mm[Hg] eCW1 ([facility]) Systolic blood pressure 142 mm[Hg] 142 mm[Hg] e CW1 ([facility]) Body temperature 97.6 [degF] 97.6 [degF] eCW1 ( [facility]) Respiratory rate 18 /min 18 /min eCW1 ([facility]) Heart rate 86 /min 86 /min eCW1 ([facility]) Body mass index (BMI) [Ratio] 28.75 kg/m2 28.75 kg/m2 W1 ([facility]) Body height 72 [in_i] 72 [in_i] eCW1 ([facility]) Body weight 212 [lb_av] 212 [lb_av] eCW1 ([facility]) Diastolic blood pressure 80 mm[Hg] 80 mm[Hg] eCW1 ([facility]) Systolic blood pressure 140 mm[Hg] 140 mm[Hg] e CW1 ([facility]) Body temperature 98.5 [degF] 98.5 [degF] eCW1 ( [facility]) Respiratory rate 20 /min 20 /min eCW1 ([facility]) Heart rate 90 /min 90 /min eCW1 ([facility]) Body mass index (BMI) [Ratio] 27.80 kg/m2 27.80 kg/m2 W1 ([facility]) Body height 72 [in_i] 72 [in_i] eCW1 ([facility]) Body weight 205 [lb_av] 205 [lb_av] eCW1 ([facility]) Diastolic blood pressure 60 mm[Hg] 60 mm[Hg] eCW1 ([facility]) Systolic blood pressure 138 mm[Hg] 138 mm[Hg] e CW1 ([facility]) Body temperature 98.7 [degF] 98.7 [degF] eCW1 ( [facility]) Respiratory rate 18 /min 18 /min eCW1 ([facility]) Heart rate 87 /min 87 /min eCW1 ([facility]) Body mass index (BMI) [Ratio] 28.26 kg/m2 28.26 kg/m2 eCW1 ([facility]) Body height 72 [in_us] 72 [in_us] eCW1 ([facility]) Body weight Measured 208.4 [lb_av] 208.4 [lb_av ] eCW1 ([facility]) Diastolic blood pressure 70 mm[Hg] 70 mm[Hg] eCW1 ([facility]) Systolic blood pressure 138 mm[Hg] 138 mm[Hg] e CW1 ([facility]) Body temperature 97.9 [degF] 97.9 [degF] eCW1 ( [facility]) Respiratory rate 18 /min 18 /min eCW1 ([facility]) Heart rate 78 /min 78 /min eCW1 ([facility]) Body mass index (BMI) [Ratio] 28.53 kg/m2 28.53 kg/m2 W1 ([facility]) Body height 72 [in_us] 72 [in_us] eCW1 ([facility]) Body weight Measured 210.4 [lb_av] 210.4 [lb_av ] eCW1 ([facility]) Diastolic blood pressure 80 mm[Hg] 80 mm[Hg] eCW1 ([facility]) Systolic blood pressure 138 mm[Hg] 138 mm[Hg] e CW1 ([facility]) Body temperature 98.5 [degF] 98.5 [degF] eCW1 ( [facility]) Respiratory rate 18 /min 18 /min eCW1 ([facility]) Heart rate 75 /min 75 /min eCW1 ([facility]) Body mass index (BMI) [Ratio] 28.97 kg/m2 28.97 kg/m2 eCW1 ([facility]) Body height 72 [in_us] 72 [in_us] eCW1 ([facility]) Body weight Measured 213.6 [lb_av] 213.6 [lb_av ] eCW1 ([facility]) Diastolic blood pressure 72 mm[Hg] 72 mm[Hg] eCW1 ([facility]) Systolic blood pressure 130 mm[Hg] 130 mm[Hg] e CW1 ([facility]) Body temperature 97.7 [degF] 97.7 [degF] eCW1 ( [facility]) Respiratory rate 18 /min 18 /min eCW1 ([facility]) Heart rate 94 /min 94 /min eCW1 ([facility]) Body mass index (BMI) [Ratio] 27.83 kg/m2 27.83 kg/m2 eCW1 ([facility]) Body height 72 [in_us] 72 [in_us] eCW1 ([facility]) Body weight Measured 205.2 [lb_av] 205.2 [lb_av ] eCW1 ([facility]) Diastolic blood pressure 80 mm[Hg] 80 mm[Hg] eCW1 ([facility]) Systolic blood pressure 162 mm[Hg] 162 mm[Hg] e CW1 ([facility]) Body temperature 98.6 [degF] 98.6 [degF] eCW1 ( [facility]) Respiratory rate 18 /min 18 /min eCW1 ([facility]) Heart rate 86 /min 86 /min eCW1 ([facility]) Body mass index (BMI) [Ratio] 27.80 kg/m2 27.80 kg/m2 eCW1 ([facility]) Body height 72 [in_us] 72 [in_us] eCW1 ([facility]) Body weight Measured 205 [lb_av] 205 [lb_av] eC W1 ([facility]) Patient Treatment Plan of Care Planned Activity Planned Date Details Description Data Source (s) Cimetidine 200 MG Oral Tablet 12/30/2019 12:00:00 AM EST eCW1 ([facility]) Rosuvastatin calcium 40 MG Oral Tablet [Crestor] 12/30/2019 12:00:0 0 AM EST eCW1 ([facility]) Cimetidine 200 MG Oral Tablet 12/30/2019 12:00:00 AM EST eCW1 ([facility]) Rosuvastatin calcium 40 MG Oral Tablet [Crestor] 12/30/2019 12:00:0 0 AM EST eCW1 ([facility]) Basaglar KwikPen 100 UNIT/ML 06/21/2019 12:00:00 AM EDT eCW1 ([facility]) Basaglar KwikPen 100 UNIT/ML 06/21/2019 12:00:00 AM EDT eCW1 ([facility]) 0.5 ML dulaglutide 3 MG/ML Auto-Injector [Trulicity] 12:00:00 AM EDT eCW1 ([facility]) Lancets - 05/18/2019 12:00:00 AM EDT e CW1 ([facility]) Lancets - 05/18/2019 12:00:00 AM EDT e CW1 ([facility]) atorvastatin 80 MG Oral Tablet 05/18/2019 12:00:00 AM EDT eCW1 ([facility]) atorvastatin 80 MG Oral Tablet 05/18/2019 12:00:00 AM EDT eCW1 ([facility]) Lancets - 05/18/2019 12:00:00 AM EDT e CW1 ([facility]) atorvastatin 80 MG Oral Tablet 05/18/2019 12:00:00 AM EDT eCW1 ([facility]) 0.5 ML dulaglutide 1.5 MG/ML Auto-Injector [Trulicity] 04/23/2019 12:00:00 AM EDT eCW1 ([facility]) Aspirin 81 MG Delayed Release Oral Tablet 04/20/2019 12:00:00 AM ED T eCW1 ([facility]) Aspirin 81 MG Delayed Release Oral Tablet 04/20/2019 12:00:00 AM ED T eCW1 ([facility]) quetiapine 25 MG Oral Tablet [Seroquel] 04/20/2019 12:00:00 AM EDT eCW1 ([facility]) atorvastatin 40 MG Oral Tablet 04/20/2019 12:00:00 AM EDT eCW1 ([facility]) Aspirin 81 MG Delayed Release Oral Tablet 04/20/2019 12:00:00 AM ED T eCW1 ([facility]) quetiapine 25 MG Oral Tablet [Seroquel] 04/20/2019 12:00:00 AM EDT eCW1 ([facility]) Trazodone Hydrochloride 50 MG Oral Tablet 03/02/2019 12:00:00 AM ES T eCW1 ([facility]) Paroxetine 20 MG Oral Tablet [Paxil] 03/02/2019 12:00:00 AM EST eCW1 ([facility])
[2020-03-25] MEDS ORDERED: NAPR-837 PO (13:11)
== END 2020-03-25 13:23 | disposition home or self-care (01) ==
LOC: M ED 12:38
DX: S00.83XA Contusion of other part of head, initial encounter (principal); S00.81XA Abrasion of other part of head, initial encounter; X58.XXXA Exposure to other specified factors, initial encounter; Y92.099 Unspecified place in other non-institutional residence as the place of occurrence of the external cause; Y93.9 Activity, unspecified; Y99.9 Unspecified external cause status; E11.9 Type 2 diabetes mellitus without complications; I10 Essential (primary) hypertension; K21.9 Gastro-esophageal reflux disease without esophagitis; F41.9 Anxiety disorder, unspecified; F17.200 Nicotine dependence, unspecified, uncomplicated; Z79.4 Long term (current) use of insulin; Z79.899 Other long term (current) drug therapy

== ENCOUNTER → 2020-05-30 | Outpatient (REF) | payer OTHER ==
[~2020-05-30] MED LIST changes: +NAPR-837 PO
[2020-05-30 14:11] LABS: ALBUMIN 3.7 GM/DL (3.2-5.2); ALT/SGPT 54 U/L (12-78); BILIRUBIN,TOTAL 0.8 MG/DL (0.2-1.0); BLOOD UREA NITROGEN 19 MG/DL (7-18); CALCIUM LEVEL 8.9 MG/DL (8.8-10.2); CARBON DIOXIDE LEVEL 26 MEQ/L (21-32); CHLORIDE LEVEL 108 MEQ/L (98-107); CREATININE FOR GFR 1.15 MG/DL (0.70-1.30); GLOMERULAR FILTRATION RATE > 60.0 (>49); GLUCOSE, FASTING 283 MG/DL (70-100); POTASSIUM SERUM 4.7 MEQ/L (3.5-5.1); SODIUM LEVEL 139 MEQ/L (136-145); TOTAL PROTEIN 7.2 GM/DL (6.4-8.2)
[2020-05-30 14:38] LABS: MALB URINE SIEMENS 51.9 MG/L; MAU/CREAT RATIO 45.1 MCG/MG (0.0-30.0)
[2020-05-30 14:42] LABS: HEMOGLOBIN A1c 8.3 %
== END ==
LOC: M SFHCPLAZ 11:29
PROVIDERS: ATTEND Family Medicine
DX: E11.65 Type 2 diabetes mellitus with hyperglycemia (principal)

== ENCOUNTER → 2020-10-17 | Outpatient (CLI) | payer OTHER ==
[2020-10-17 12:59] LABS: HEMATOCRIT 42.7 % (42.0-52.0); HEMOGLOBIN 13.7 g/dl (13.5-17.5); MEAN CORPUSCULAR HEMOGLOBIN 29.7 pg (27.0-33.0); MEAN CORPUSCULAR HGB CONC 32.1 g/dl (32.0-36.5); MEAN CORPUSCULAR VOLUME 92.4 fl (80.0-96.0); PLATELET COUNT, AUTOMATED 235 10^3/uL (150-450); RED BLOOD COUNT 4.62 10^6/uL (4.30-6.10); WHITE BLOOD COUNT 7.9 10^3/uL (4.0-10.0)
[2020-10-17 13:36] LABS: ALBUMIN 3.6 GM/DL (3.2-5.2); ALT/SGPT 41 U/L (12-78); BILIRUBIN,TOTAL 0.8 MG/DL (0.2-1.0); BLOOD UREA NITROGEN 13 MG/DL (7-18); CALCIUM LEVEL 9.7 MG/DL (8.8-10.2); CARBON DIOXIDE LEVEL 26 MEQ/L (21-32); CHLORIDE LEVEL 108 MEQ/L (98-107); CREATININE FOR GFR 1.16 MG/DL (0.70-1.30); GLOMERULAR FILTRATION RATE > 60.0 (>49); GLUCOSE, FASTING 188 MG/DL (70-100); POTASSIUM SERUM 4.7 MEQ/L (3.5-5.1); SODIUM LEVEL 140 MEQ/L (136-145); TOTAL PROTEIN 7.3 GM/DL (6.4-8.2)
[2020-10-17 14:13] LABS: HEMOGLOBIN A1c 8.5 %
== END ==
LOC: M PLALAB 09:33
PROVIDERS: ATTEND Student in an Organized Health Care Education/Training Program
DX: K92.1 Melena (principal); E11.65 Type 2 diabetes mellitus with hyperglycemia

== ENCOUNTER → 2021-01-12 | Outpatient (CLI) | payer OTHER ==
[~2021-01-12] MED LIST changes: -INSULADS INJ; +INSULADS SQ; +QUET100T2 PO; +ROSU40TA4 PO
== END ==
LOC: M LABSMTC 09:19
PROVIDERS: ATTEND Anesthesiology
DX: Z01.812 Encounter for preprocedural laboratory examination (principal); Z20.822 Contact with and (suspected) exposure to COVID-19

== ENCOUNTER 2021-01-17 07:33 | Day surgery (SDC) | payer OTHER ==
[~2021-01-17] VITALS: Ht 182.9 cm; Wt 90.7 kg
[~2021-01-17 07:33] MED LIST changes: -LISI20TA20 PO; +LISI20TA37 PO; +NS 1,000 ML IV ONE
[2021-01-17] MEDS ORDERED: LIDOCAINE 2% 100MG/5ML SDV (FOR ANES.) As Ordered ONE (07:38)
[2021-01-17] MEDS ORDERED: propofoL 200 MG/20 ML VIAL As Ordered ONE ×3 (07:38→09:03)
[2021-01-17] MEDS ORDERED: GLUCAGON INJ 1MG VIAL As Ordered ONE (09:01)
[2021-01-17 09:40] VITALS: BP 129/65
== END 2021-01-17 09:55 | disposition home or self-care (01) ==
LOC: M OPP 07:33
PROVIDERS: ATTEND Surgery
DX: K63.5 Polyp of colon (principal); R19.5 Other fecal abnormalities; I10 Essential (primary) hypertension; E78.5 Hyperlipidemia, unspecified; E10.9 Type 1 diabetes mellitus without complications; F17.200 Nicotine dependence, unspecified, uncomplicated; Z79.899 Other long term (current) drug therapy
CPT/HCPCS: 45385; 88305; J1610

== ENCOUNTER → 2021-06-04 | Outpatient (REF) | payer OTHER ==
[~2021-06-04] MED LIST changes: -NS 1,000 ML IV ONE
== END ==
LOC: M SFHCPLAZ 11:04
PROVIDERS: ATTEND Family Medicine
DX: E11.65 Type 2 diabetes mellitus with hyperglycemia (principal); Z53.9 Procedure and treatment not carried out, unspecified reason

== ENCOUNTER → 2021-06-10 | Outpatient (CLI) | payer OTHER | LOC: M WHC 08:22 | PROVIDERS: ATTEND Student in an Organized Health Care Education/Training Program | DX: Z13.6 Encounter for screening for cardiovascular disorders (principal) ==

== ENCOUNTER → 2021-09-19 | Outpatient (CLI) | payer MEDICARE, OTHER | LOC: M RAD 09:03 | PROVIDERS: ATTEND Physician Assistant | DX: Z12.2 Encounter for screening for malignant neoplasm of respiratory organs (principal); F17.218 Nicotine dependence, cigarettes, with other nicotine-induced disorders ==

== ENCOUNTER → 2021-11-05 | Outpatient (CLI) | payer MEDICARE, OTHER ==
[~2021-11-05] MED LIST changes: +ALBU6.7H6 INH; -PROV108A INH
== END ==
LOC: M CARPUL 10:41
PROVIDERS: ATTEND Physician Assistant
DX: J43.1 Panlobular emphysema (principal)

== ENCOUNTER → 2021-12-09 | Outpatient (REF) | payer MEDICARE, OTHER ==
[2021-12-09 14:32] LABS: HEMOGLOBIN 13.9 g/dl (13.5-17.5); MEAN CORPUSCULAR HEMOGLOBIN 30.1 pg (27.0-33.0); MEAN CORPUSCULAR HGB CONC 32.3 g/dl (32.0-36.5); MEAN CORPUSCULAR VOLUME 93.1 fl (80.0-96.0); PLATELET COUNT, AUTOMATED 245 10^3/uL (150-450); RED BLOOD COUNT 4.62 10^6/uL (4.30-6.10); WHITE BLOOD COUNT 9.5 10^3/uL (4.0-10.0)
[2021-12-09 14:48] LABS: HEMOGLOBIN A1c 8.7 %
[2021-12-09 15:37] LABS: ALBUMIN 3.4 GM/DL (3.2-5.2); BILIRUBIN,TOTAL 1.3 MG/DL (0.2-1.0); CALCIUM LEVEL 8.9 MG/DL (8.8-10.2); CHOLESTEROL RISK RATIO 2.216 (<5); CREATININE FOR GFR 1.34 MG/DL (0.70-1.30); THYROID STIMULATING HORMONE 2.63 uIU/ML (0.358-3.740); TOTAL PROTEIN 7.4 GM/DL (6.4-8.2)
== END ==
LOC: M SFHCPLAZ 12:57
PROVIDERS: ATTEND Student in an Organized Health Care Education/Training Program
DX: E11.65 Type 2 diabetes mellitus with hyperglycemia (principal); E78.2 Mixed hyperlipidemia; I10 Essential (primary) hypertension; Z13.29 Encounter for screening for other suspected endocrine disorder

== ENCOUNTER → 2022-01-01 | Outpatient (CLI) | payer MEDICARE, OTHER | LOC: M PLAIMG 10:36 | PROVIDERS: ATTEND Physician Assistant | DX: R91.8 Other nonspecific abnormal finding of lung field (principal); J44.9 Chronic obstructive pulmonary disease, unspecified ==

== ENCOUNTER → 2022-05-28 | Outpatient (REF) | payer MEDICARE, OTHER | LOC: M SFHCPLAZ 10:58 | PROVIDERS: ATTEND Family Medicine | DX: E11.65 Type 2 diabetes mellitus with hyperglycemia (principal); E78.2 Mixed hyperlipidemia; I10 Essential (primary) hypertension ==

== ENCOUNTER 2022-10-08 13:21 | Inpatient (IN) | payer MEDICARE, OTHER ==
[~2022-10-08] VITALS: Ht 182.9 cm; Wt 90.9 kg
[2022-10-08] MEDS ORDERED: CIME200T5 PO (13:42)
[2022-10-08] MEDS ORDERED: FLUT1BLS8 (13:42)
[2022-10-08] MEDS ORDERED: TRES1INJ2 SC (13:42)
[2022-10-08 14:12] LABS: HEMATOCRIT 49.2 % (42.0-52.0); HEMOGLOBIN 16.4 g/dl (13.5-17.5); MEAN CORPUSCULAR HEMOGLOBIN 30.3 pg (27.0-33.0); MEAN CORPUSCULAR HGB CONC 33.3 g/dl (32.0-36.5); MEAN CORPUSCULAR VOLUME 90.9 fl (80.0-96.0); PLATELET COUNT, AUTOMATED 335 10^3/uL (150-450); RED BLOOD COUNT 5.41 10^6/uL (4.30-6.10); WHITE BLOOD COUNT 15.4 10^3/uL (4.0-10.0)
[2022-10-08 14:35] LABS: AMPHETAMINES LEVEL URINE NEGATIVE (NEGATIVE); BARBITURATES URINE NEGATIVE (NEGATIVE); COCAINE METABOLITE URINE NEGATIVE (NEGATIVE); METHADONE URINE NEGATIVE (NEGATIVE); OPIATES URINE NEGATIVE (NEGATIVE); PHENCYCLIDINE URINE NEGATIVE (NEGATIVE)
[2022-10-08 14:36] LABS: BENZODIAZEPINES URINE NEGATIVE (NEGATIVE)
[2022-10-08 14:37] LABS: CANNABINOIDS URINE POSITIVE (NEGATIVE)
[2022-10-08 14:38] LABS: ETHYL ALCOHOL (ETHANOL) < 0.003 % (0.000-0.010)
[2022-10-08 14:39] LABS: ACETAMINOPHEN LEVEL < 2.0 UG/ML (10.0-20.0); ALBUMIN 4.3 G/DL (3.2-5.2); ALKALINE PHOSPHATASE 58 U/L (46-116); ALT/SGPT 40 U/L (7.0-40); AST/SGOT 36 U/L (<34); BILIRUBIN,DIRECT 0.3 MG/DL (<0.4); BILIRUBIN,TOTAL 0.7 MG/DL (0.3-1.2); BLOOD UREA NITROGEN 23 MG/DL (9-23); CALCIUM LEVEL 10.2 MG/DL (8.3-10.6); CARBON DIOXIDE LEVEL 27 MMOL/L (20-31); CHLORIDE LEVEL 107 MMOL/L (98-107); CREATININE FOR GFR 1.04 MG/DL (0.70-1.30); GLOMERULAR FILTRATION RATE > 60.0 (>49); GLUCOSE, FASTING 47 MG/DL (74-106); POTASSIUM SERUM 3.6 MMOL/L (3.5-5.1); SALICYLATE LEVEL < 3.0 MG/DL (<30); SODIUM LEVEL 144 MMOL/L (136-145); TOTAL PROTEIN 8.3 G/DL (5.7-8.2)
[2022-10-08] MEDS ORDERED: HOME MED LIST COMPLETE! XX SCH (15:00)
[2022-10-08] MEDS ORDERED: MED REC IN PROGRESS XX SCH (15:00)
[2022-10-08] MEDS ORDERED: MOM 30ML SUSPENSION UDC PO PRN (18:15)
[2022-10-08] MEDS ORDERED: ACETAMINOPHEN TAB 650MG DOSE (2X325MG) PO PRN (18:15)
[2022-10-08] MEDS ORDERED: D5W 1,000 ML IV SCH (18:20)
[2022-10-08] MEDS ORDERED: GLUCOSE 4GM CHEW TABLET PO PRN (19:10)
[2022-10-08] MEDS ORDERED: DEXTROSE 50% 50ML SYRINGE IV PRN (19:10)
[2022-10-08] MEDS ORDERED: GLUCAGON INJ 1MG VIAL SC PRN (19:10)
[2022-10-08] MEDS ORDERED: IPRATROPIUM 0.5MG/ALBUTEROL 2.5MG INH SOL UD 3ML (DUONEB) NEB PRN (19:15)
[2022-10-08] MEDS: DOCUSATE SODIUM 100MG CAPSULE PO SCH (21:00)
[2022-10-08] MEDS: D10W 1,000 ML IV SCH (21:44)
[2022-10-08] MEDS ORDERED: DEXTROSE 50% 50ML SYRINGE IV STA (23:40)
[2022-10-09] MEDS ORDERED: ALBU8.5H INH (00:51)
[2022-10-09] MEDS ORDERED: LISI20TA37 PO (00:51)
[2022-10-09] MEDS ORDERED: ASPI-161 PO (00:51)
[2022-10-09] MEDS: D10W 1,000 ML IV SCH ×2 (01:52→04:47)
[2022-10-09] MEDS: DEXTROSE 50% 50ML SYRINGE IV PRN ×5 (01:52→07:53)
[2022-10-09] MEDS ORDERED: HYDROCORTISONE 100MG/2ML VIAL IV ONE (05:15)
[2022-10-09] MEDS ORDERED: OCTREOTIDE ACETATE 100MCG/ML VIAL **SC ADMINISTRATION ONLY SC SCH ×2 (06:00→12:00)
[2022-10-09 07:36] LABS: HEMATOCRIT 42.3 % (42.0-52.0); HEMOGLOBIN 14.4 g/dl (13.5-17.5); MEAN CORPUSCULAR HEMOGLOBIN 30.1 pg (27.0-33.0); MEAN CORPUSCULAR VOLUME 88.3 fl (80.0-96.0); PLATELET COUNT, AUTOMATED 231 10^3/uL (150-450); RED BLOOD COUNT 4.79 10^6/uL (4.30-6.10)
[2022-10-09 07:40] LABS: BLOOD UREA NITROGEN 20 MG/DL (9-23); CALCIUM LEVEL 8.7 MG/DL (8.3-10.6); CARBON DIOXIDE LEVEL 23 MMOL/L (20-31); CHLORIDE LEVEL 108 MMOL/L (98-107); CREATININE FOR GFR 0.92 MG/DL (0.70-1.30); GLOMERULAR FILTRATION RATE > 60.0 (>49); GLUCOSE, FASTING 160 MG/DL (74-106); POTASSIUM SERUM 3.8 MMOL/L (3.5-5.1); SODIUM LEVEL 139 MMOL/L (136-145)
[2022-10-09] MEDS: DOCUSATE SODIUM 100MG CAPSULE PO SCH ×2 (09:00→20:06)
[2022-10-09] MEDS: ENOXAPARIN 40MG/0.4ML SYRINGE (J1650 PER 10MG) SC SCH (09:00)
[2022-10-09] MEDS ORDERED: D10W IV SCH (12:00)
[2022-10-09] MEDS ORDERED: D50W 70 ML in D10W 1,040 ML IV SCH (12:00)
[2022-10-09] MEDS ORDERED: [UNRECOGNIZED DRUG - OTHER] IV SCH (12:00)
[2022-10-09 12:22] LABS: BLOOD UREA NITROGEN 21 MG/DL (9-23); CALCIUM LEVEL 8.8 MG/DL (8.3-10.6); CARBON DIOXIDE LEVEL 21 MMOL/L (20-31); CHLORIDE LEVEL 104 MMOL/L (98-107); CREATININE FOR GFR 0.85 MG/DL (0.70-1.30); GLOMERULAR FILTRATION RATE > 60.0 (>49); GLUCOSE, FASTING 203 MG/DL (74-106); POTASSIUM SERUM 4.1 MMOL/L (3.5-5.1); SODIUM LEVEL 135 MMOL/L (136-145)
[2022-10-09 13:20] VITALS: BP 164/77; TEMP 97.3; O2SAT 96
[2022-10-09 15:30] VITALS: BP 163/73; TEMP 98; O2SAT 96
[2022-10-09 18:23] LABS: BLOOD UREA NITROGEN 23 MG/DL (9-23); CALCIUM LEVEL 8.6 MG/DL (8.3-10.6); CARBON DIOXIDE LEVEL 20 MMOL/L (20-31); CHLORIDE LEVEL 103 MMOL/L (98-107); CREATININE FOR GFR 0.85 MG/DL (0.70-1.30); GLOMERULAR FILTRATION RATE > 60.0 (>49); GLUCOSE, FASTING 191 MG/DL (74-106); POTASSIUM SERUM 4.8 MMOL/L (3.5-5.1); SODIUM LEVEL 133 MMOL/L (136-145)
[2022-10-09 20:45] VITALS: BP 152/70; TEMP 97.8; O2SAT 97
[2022-10-10] VITALS: BP 139/73; TEMP 97.7; O2SAT 96
[2022-10-10 00:11] LABS: BLOOD UREA NITROGEN 26 MG/DL (9-23); CALCIUM LEVEL 8.4 MG/DL (8.3-10.6); CARBON DIOXIDE LEVEL 22 MMOL/L (20-31); CHLORIDE LEVEL 104 MMOL/L (98-107); CREATININE FOR GFR 0.92 MG/DL (0.70-1.30); GLOMERULAR FILTRATION RATE > 60.0 (>49); GLUCOSE, FASTING 207 MG/DL (74-106); POTASSIUM SERUM 4.6 MMOL/L (3.5-5.1); SODIUM LEVEL 134 MMOL/L (136-145)
[2022-10-10 04:00] VITALS: BP 142/78; TEMP 97.1; O2SAT 95
[2022-10-10 06:45] LABS: BLOOD UREA NITROGEN 26 MG/DL (9-23); CALCIUM LEVEL 8.7 MG/DL (8.3-10.6); CARBON DIOXIDE LEVEL 21 MMOL/L (20-31); CHLORIDE LEVEL 108 MMOL/L (98-107); GLOMERULAR FILTRATION RATE > 60.0 (>49); GLUCOSE, FASTING 79 MG/DL (74-106); POTASSIUM SERUM 4.2 MMOL/L (3.5-5.1); SODIUM LEVEL 140 MMOL/L (136-145)
[2022-10-10 08:35] VITALS: BP 143/65; TEMP 98.4; O2SAT 96
[2022-10-10] MEDS: ENOXAPARIN 40MG/0.4ML SYRINGE (J1650 PER 10MG) SC SCH (08:37)
[2022-10-10] MEDS: DOCUSATE SODIUM 100MG CAPSULE PO SCH (08:37)
[2022-10-10] MEDS ORDERED: ROSUVASTATIN 10 MG TAB (CRESTOR) PO SCH (09:00)
[2022-10-10] MEDS ORDERED: CRES10TA PO (09:49)
[2022-10-10] MEDS ORDERED: LISI10TA22 PO (09:49)
[2022-10-10 17:20] VITALS: BP 158/74; TEMP 98.1; O2SAT 98
[2022-10-10 18:20] LABS: BLOOD UREA NITROGEN 32 MG/DL (9-23); CALCIUM LEVEL 8.5 MG/DL (8.3-10.6); CARBON DIOXIDE LEVEL 20 MMOL/L (20-31); CHLORIDE LEVEL 106 MMOL/L (98-107); CREATININE FOR GFR 0.95 MG/DL (0.70-1.30); GLOMERULAR FILTRATION RATE > 60.0 (>49); GLUCOSE, FASTING 257 MG/DL (74-106); POTASSIUM SERUM 4.2 MMOL/L (3.5-5.1); SODIUM LEVEL 136 MMOL/L (136-145)
== END 2022-10-10 17:48 | DRG 918 ==
LOC: M ED 13:21 → M ED INP 18:11 → M PCU 10-09 13:36
PROVIDERS: ADMIT Student in an Organized Health Care Education/Training Program; ATTEND Family Medicine
DX: T38.3X2A Poisoning by insulin and oral hypoglycemic [antidiabetic] drugs, intentional self-harm, initial encounter (principal); I10 Essential (primary) hypertension; F32.A Depression, unspecified; F17.200 Nicotine dependence, unspecified, uncomplicated; E78.5 Hyperlipidemia, unspecified; F41.9 Anxiety disorder, unspecified; J43.9 Emphysema, unspecified; E11.649 Type 2 diabetes mellitus with hypoglycemia without coma; K21.9 Gastro-esophageal reflux disease without esophagitis; G47.00 Insomnia, unspecified; Z90.49 Acquired absence of other specified parts of digestive tract; Z66 Do not resuscitate; Z79.82 Long term (current) use of aspirin; Z79.4 Long term (current) use of insulin; Z79.899 Other long term (current) drug therapy

== ENCOUNTER 2022-10-10 16:27 | Inpatient (IN) | payer MEDICARE ==
[~2022-10-10] VITALS: Ht 182.9 cm; Wt 86.9 kg
[~2022-10-10 16:27] MED LIST changes: +ALBU8.5H INH; +ASPI-161 PO; +CIME200T5 PO; +CRES10TA PO; +FLUT1BLS8; +LISI10TA22 PO; +TRES1INJ2 SC
[2022-10-10] MEDS ORDERED: MAALOX 30 ML SUSP *UDC PO PRN (16:50)
[2022-10-10] MEDS ORDERED: traZODone 50 MG TAB PO PRN (16:50)
[2022-10-10] MEDS ORDERED: IBUPROFEN 400MG TAB PO PRN (16:50)
[2022-10-10] MEDS ORDERED: MOM 30ML SUSPENSION UDC PO PRN (16:50)
[2022-10-10] MEDS ORDERED: ACETAMINOPHEN TAB 650MG DOSE (2X325MG) PO PRN (16:50)
[2022-10-10 17:55] VITALS: BP 158/74; TEMP 98.1; O2SAT 98
[2022-10-11 06:25] VITALS: BP 150/69; TEMP 98; O2SAT 99
[2022-10-11] MEDS ORDERED: NICOTINE 21MG/24HR 1 EA TRANSDERMAL TD PRN (08:30)
[2022-10-11] MEDS: ROSUVASTATIN 10 MG TAB (CRESTOR) PO SCH (17:30)
[2022-10-11 18:14] VITALS: BP 148/77; TEMP 97.2; O2SAT 99
[2022-10-11] MEDS: diphenhydrAMINE 25MG CAP PO PRN (20:23)
[2022-10-12] MEDS ORDERED: dexAMETHasone 4 MG TAB PO ONE (01:30)
[2022-10-12] MEDS ORDERED: GLUCAGON INJ 1MG VIAL SC PRN (01:30)
[2022-10-12 06:52] VITALS: BP 167/81; TEMP 97.2; O2SAT 99
[2022-10-12] MEDS: ROSUVASTATIN 10 MG TAB (CRESTOR) PO SCH (09:42)
[2022-10-12] MEDS ORDERED: ALBUTEROL 90 MCG/ACT 8GM HFA INHALER INH PRN (13:10)
[2022-10-12] MEDS: metFORMIN (GLUCOPHAGE) 500MG TAB PO SCH (17:36)
[2022-10-12 18:56] VITALS: BP 140/94; TEMP 98.1; O2SAT 97
[2022-10-12 19:06] VITALS: BP 137/87
[2022-10-12] MEDS: diphenhydrAMINE 25MG CAP PO PRN (20:43)
[2022-10-13 06:57] VITALS: BP 119/59; TEMP 97.3; O2SAT 99
[2022-10-13] MEDS: GLUCOSE 4GM CHEW TABLET PO PRN ×2 (06:58→07:37)
[2022-10-13] MEDS: metFORMIN (GLUCOPHAGE) 500MG TAB PO SCH (07:32)
[2022-10-13] MEDS: ROSUVASTATIN 10 MG TAB (CRESTOR) PO SCH (09:37)
[2022-10-13 17:15] VITALS: BP 134/63; TEMP 97.3
[2022-10-13] MEDS: diphenhydrAMINE 25MG CAP PO PRN (20:38)
[2022-10-14 06:04] VITALS: BP 145/67; TEMP 98.2; O2SAT 98
[2022-10-14 07:52] LABS: HEMOGLOBIN A1c 6.7 % (4.0-6.0)
[2022-10-14] MEDS: ROSUVASTATIN 10 MG TAB (CRESTOR) PO SCH (09:38)
[2022-10-14 14:58] VITALS: BP 163/71; TEMP 98.2; O2SAT 99
[2022-10-14] MEDS ORDERED: GLUCAGON INJ 1MG VIAL SC PRN (20:20)
[2022-10-14] MEDS ORDERED: DEXTROSE 50% 50ML SYRINGE IV PRN (20:20)
[2022-10-14] MEDS ORDERED: GLUCOSE 4GM CHEW TABLET PO PRN (20:20)
[2022-10-14] MEDS: INSULIN LISPRO (NovoLOG) PER UNIT SC SCH (20:35)
[2022-10-14] MEDS: diphenhydrAMINE 25MG CAP PO PRN (20:35)
[2022-10-15 06:13] VITALS: BP 124/68; TEMP 97.7
[2022-10-15] MEDS: INSULIN LISPRO (NovoLOG) PER UNIT SC SCH ×4 (06:32→20:08)
[2022-10-15] MEDS ORDERED: SERTRALINE HCL 50 MG TAB PO SCH (09:00)
[2022-10-15 09:52] VITALS: BP 138/71
[2022-10-15] MEDS: ROSUVASTATIN 10 MG TAB (CRESTOR) PO SCH (09:53)
[2022-10-15 18:00] VITALS: BP 134/82; TEMP 98
[2022-10-15] MEDS: diphenhydrAMINE 25MG CAP PO PRN (20:07)
[2022-10-15] MEDS: SERTRALINE HCL 50 MG TAB PO SCH (20:07)
[2022-10-16 06:53] VITALS: BP 151/68; TEMP 98.4; O2SAT 99
[2022-10-16] MEDS: INSULIN LISPRO (NovoLOG) PER UNIT SC SCH ×4 (07:19→20:01)
[2022-10-16] MEDS: ROSUVASTATIN 10 MG TAB (CRESTOR) PO SCH (10:08)
[2022-10-16 16:49] VITALS: BP 143/65; TEMP 98.4; O2SAT 99
[2022-10-16] MEDS: diphenhydrAMINE 25MG CAP PO PRN (20:01)
[2022-10-16] MEDS: SERTRALINE HCL 50 MG TAB PO SCH (20:01)
[2022-10-17 06:40] VITALS: BP 145/67; TEMP 98; O2SAT 99
[2022-10-17] MEDS: INSULIN LISPRO (NovoLOG) PER UNIT SC SCH ×4 (06:51→20:15)
[2022-10-17 09:42] VITALS: BP 144/70
[2022-10-17] MEDS: ROSUVASTATIN 10 MG TAB (CRESTOR) PO SCH (09:43)
[2022-10-17 16:09] VITALS: BP 139/69; TEMP 98.1; O2SAT 98
[2022-10-17] MEDS: SERTRALINE HCL 50 MG TAB PO SCH (20:15)
[2022-10-17] MEDS: diphenhydrAMINE 25MG CAP PO PRN (20:15)
[2022-10-18 06:13] VITALS: BP 130/57; TEMP 97.7; O2SAT 97
[2022-10-18] MEDS: INSULIN LISPRO (NovoLOG) PER UNIT SC SCH ×4 (06:50→20:05)
[2022-10-18] MEDS: ROSUVASTATIN 10 MG TAB (CRESTOR) PO SCH (09:52)
[2022-10-18 18:00] VITALS: BP 153/81; TEMP 98
[2022-10-18] MEDS: diphenhydrAMINE 25MG CAP PO PRN (20:04)
[2022-10-18] MEDS: SERTRALINE HCL 50 MG TAB PO SCH (20:05)
[2022-10-19 05:42] VITALS: BP 121/57; TEMP 97.3; O2SAT 100
[2022-10-19] MEDS: INSULIN LISPRO (NovoLOG) PER UNIT SC SCH ×4 (06:54→20:28)
[2022-10-19 09:05] VITALS: BP 123/83
[2022-10-19] MEDS: ROSUVASTATIN 10 MG TAB (CRESTOR) PO SCH (09:07)
[2022-10-19 18:00] VITALS: BP 145/64; TEMP 97.1; O2SAT 100
[2022-10-19] MEDS: diphenhydrAMINE 25MG CAP PO PRN (20:27)
[2022-10-19] MEDS: SERTRALINE HCL 50 MG TAB PO SCH (20:27)
[2022-10-20 06:17] VITALS: BP 128/63; TEMP 98.2; O2SAT 99
[2022-10-20] MEDS: INSULIN LISPRO (NovoLOG) PER UNIT SC SCH ×4 (06:38→20:35)
[2022-10-20] MEDS: ROSUVASTATIN 10 MG TAB (CRESTOR) PO SCH (09:10)
[2022-10-20 16:16] VITALS: BP 140/68; TEMP 97.8; O2SAT 98
[2022-10-20] MEDS: diphenhydrAMINE 25MG CAP PO PRN (20:36)
[2022-10-20] MEDS: SERTRALINE HCL 50 MG TAB PO SCH (20:36)
[2022-10-21] MEDS: INSULIN LISPRO (NovoLOG) PER UNIT SC SCH ×4 (06:36→20:21)
[2022-10-21 06:46] VITALS: BP 137/68; TEMP 97.9; O2SAT 98
[2022-10-21] MEDS: ROSUVASTATIN 10 MG TAB (CRESTOR) PO SCH (08:48)
[2022-10-21 16:44] VITALS: BP 140/71; TEMP 97.8; O2SAT 99
[2022-10-21] MEDS: SERTRALINE HCL 50 MG TAB PO SCH (20:19)
[2022-10-21] MEDS: diphenhydrAMINE 25MG CAP PO PRN (20:19)
[2022-10-22 06:30] VITALS: BP 150/75; TEMP 98.6; O2SAT 100
[2022-10-22] MEDS: INSULIN LISPRO (NovoLOG) PER UNIT SC SCH ×4 (06:37→20:05)
[2022-10-22] MEDS: ROSUVASTATIN 10 MG TAB (CRESTOR) PO SCH (07:53)
[2022-10-22 16:24] VITALS: BP 140/69; TEMP 98.1; O2SAT 98
[2022-10-22] MEDS: SERTRALINE HCL 25 MG TABLET PO SCH (20:04)
[2022-10-22] MEDS: diphenhydrAMINE 25MG CAP PO PRN (20:05)
[2022-10-23 06:07] VITALS: BP 143/74; TEMP 98.9; O2SAT 99
[2022-10-23] MEDS: INSULIN LISPRO (NovoLOG) PER UNIT SC SCH ×4 (06:48→20:09)
[2022-10-23 08:19] VITALS: BP 138/78
[2022-10-23] MEDS: ROSUVASTATIN 10 MG TAB (CRESTOR) PO SCH (08:19)
[2022-10-23] MEDS: SITagliptin 50 MG TAB (JANUVIA) PO SCH (11:57)
[2022-10-23] MEDS: metFORMIN (GLUCOPHAGE) 1000MG TABLET PO SCH (18:13)
[2022-10-23 19:14] VITALS: BP 140/62; TEMP 98.6
[2022-10-23] MEDS: SERTRALINE HCL 25 MG TABLET PO SCH (20:08)
[2022-10-23] MEDS: diphenhydrAMINE 25MG CAP PO PRN (20:08)
[2022-10-24 06:12] VITALS: BP 137/52; TEMP 98; O2SAT 99
[2022-10-24] MEDS: INSULIN LISPRO (NovoLOG) PER UNIT SC SCH ×4 (06:49→20:10)
[2022-10-24] MEDS: SITagliptin 50 MG TAB (JANUVIA) PO SCH (08:50)
[2022-10-24] MEDS: metFORMIN (GLUCOPHAGE) 1000MG TABLET PO SCH ×2 (08:50→17:03)
[2022-10-24] MEDS: ROSUVASTATIN 10 MG TAB (CRESTOR) PO SCH (08:51)
[2022-10-24 16:15] VITALS: BP 137/64; TEMP 98.7; O2SAT 100
[2022-10-24] MEDS: SERTRALINE HCL 25 MG TABLET PO SCH (20:12)
[2022-10-24] MEDS: diphenhydrAMINE 25MG CAP PO PRN (20:13)
[2022-10-25 06:39] VITALS: BP 124/72; TEMP 97.3; O2SAT 100
[2022-10-25] MEDS: INSULIN LISPRO (NovoLOG) PER UNIT SC SCH ×4 (06:41→20:08)
[2022-10-25] MEDS: ROSUVASTATIN 10 MG TAB (CRESTOR) PO SCH (07:52)
[2022-10-25] MEDS: SITagliptin 50 MG TAB (JANUVIA) PO SCH (07:53)
[2022-10-25] MEDS: metFORMIN (GLUCOPHAGE) 1000MG TABLET PO SCH ×2 (07:53→17:03)
[2022-10-25 16:13] VITALS: BP 132/70; TEMP 98.2; O2SAT 100
[2022-10-25] MEDS: SERTRALINE HCL 25 MG TABLET PO SCH (20:07)
[2022-10-25] MEDS: diphenhydrAMINE 25MG CAP PO PRN (20:07)
[2022-10-26 06:25] VITALS: BP 131/63; TEMP 97.8; O2SAT 100
[2022-10-26] MEDS: INSULIN LISPRO (NovoLOG) PER UNIT SC SCH ×4 (06:34→20:37)
[2022-10-26] MEDS: ROSUVASTATIN 10 MG TAB (CRESTOR) PO SCH (07:45)
[2022-10-26] MEDS: metFORMIN (GLUCOPHAGE) 1000MG TABLET PO SCH ×2 (07:45→17:14)
[2022-10-26] MEDS: SITagliptin 50 MG TAB (JANUVIA) PO SCH (07:45)
[2022-10-26 16:10] VITALS: BP 138/64; TEMP 98.7; O2SAT 100
[2022-10-26] MEDS: SERTRALINE HCL 25 MG TABLET PO SCH (20:08)
[2022-10-26] MEDS: diphenhydrAMINE 25MG CAP PO PRN (20:08)
[2022-10-27 06:23] VITALS: BP 142/80; TEMP 97.6; O2SAT 97
[2022-10-27] MEDS: INSULIN LISPRO (NovoLOG) PER UNIT SC SCH ×2 (06:50→12:00)
[2022-10-27] MEDS: metFORMIN (GLUCOPHAGE) 1000MG TABLET PO SCH (08:19)
[2022-10-27 08:20] VITALS: BP 142/80
[2022-10-27] MEDS: SITagliptin 50 MG TAB (JANUVIA) PO SCH (08:20)
[2022-10-27] MEDS: ROSUVASTATIN 10 MG TAB (CRESTOR) PO SCH (08:20)
[2022-10-27] MEDS ORDERED: SERT25TA21 PO (11:02)
[2022-10-27] MEDS ORDERED: METF10004 PO (11:02)
[2022-10-27] MEDS ORDERED: SITA50TAB PO (11:02)
== END 2022-10-27 12:45 | disposition home or self-care (01) | DRG 881 ==
LOC: M PSY 17:55
PROVIDERS: ADMIT Psychiatry & Neurology Child & Adolescent Psychiatry; ATTEND Student in an Organized Health Care Education/Training Program
DX: F32.A Depression, unspecified (principal); R45.851 Suicidal ideations; E78.5 Hyperlipidemia, unspecified; E11.649 Type 2 diabetes mellitus with hypoglycemia without coma; I10 Essential (primary) hypertension; J43.9 Emphysema, unspecified; F43.21 Adjustment disorder with depressed mood; F12.10 Cannabis abuse, uncomplicated; E11.65 Type 2 diabetes mellitus with hyperglycemia; Z91.51 Personal history of suicidal behavior; Z79.899 Other long term (current) drug therapy

== ENCOUNTER → 2023-07-17 | Outpatient (CLI) | payer MEDICARE, MEDICAID ==
[~2023-07-17] MED LIST changes: -ASPI-161 PO; +ASPI-615 PO; +FAMO20TA PO; +JANU100T PO; +MAGN400T2 PO; +MED REC COMMENT; +QUET1TAB17 PO; -ROSU40TA4 PO; +ROSU40TA63 PO; +SERT25TA21 PO; +SITA50TAB PO; +SODI325T9 PO
== END ==
LOC: M RAD 10:20
PROVIDERS: ATTEND Student in an Organized Health Care Education/Training Program
DX: Z12.2 Encounter for screening for malignant neoplasm of respiratory organs (principal); F17.210 Nicotine dependence, cigarettes, uncomplicated; R91.8 Other nonspecific abnormal finding of lung field

== ENCOUNTER → 2023-11-27 | Outpatient (CLI) | payer MEDICARE, OTHER ==
[~2023-11-27] MED LIST changes: -ROSU40TA63 PO; +ROSU40TA81 PO
== END ==
LOC: M RAD 11:24
DX: R22.1 Localized swelling, mass and lump, neck (principal)

== ENCOUNTER → 2023-12-08 | Outpatient (CLI) | payer MEDICARE, OTHER ==
[2023-12-08 13:29] LABS: ALBUMIN 3.7 G/DL (3.2-5.2); ALKALINE PHOSPHATASE 58 U/L (40-129); ALT/SGPT 40 U/L (7.0-40); AST/SGOT 28 U/L (<34); BILIRUBIN,TOTAL 0.7 MG/DL (0.3-1.2); BLOOD UREA NITROGEN 25 MG/DL (9-23); CALCIUM LEVEL 10.3 MG/DL (8.3-10.6); CARBON DIOXIDE LEVEL 23 MMOL/L (20-31); CHLORIDE LEVEL 112 MMOL/L (98-107); CHOLESTEROL LEVEL 95 MG/DL (<200); CHOLESTEROL RISK RATIO 2.76 (<5); CREATININE FOR GFR 0.96 MG/DL (0.70-1.30); GLOMERULAR FILTRATION RATE > 60.0 (>49); GLUCOSE, FASTING 162 MG/DL (74-106); HDL CHOLESTEROL 34.3 MG/DL (>40); LDL CHOLESTEROL 37.9 MG/DL (<100); NON-HDL-C 60.7 MG/DL; POTASSIUM SERUM 4.6 MMOL/L (3.5-5.1); SODIUM LEVEL 141 MMOL/L (136-145); TOTAL PROTEIN 7.5 G/DL (5.7-8.2); TRIGLYCERIDES LEVEL 114 MG/DL (<150)
[2023-12-08 13:31] LABS: THYROID STIMULATING HORMONE 1.194 uIU/ML (0.55-4.78)
[2023-12-08 13:32] LABS: FREE T4 1.24 NG/DL (0.89-1.76)
[2023-12-08 13:36] LABS: BASO # 0.1 10^3/uL (0.0-0.2); EOS # 0.2 10^3/uL (0.0-0.5); EOS % 2.7 % (0.0-3.0); HEMATOCRIT 38.6 % (42.0-52.0); HEMOGLOBIN 12.5 g/dl (13.5-17.5); LYMPH # 3.2 10^3/uL (1.5-5.0); LYMPH % 40.9 % (24.0-44.0); MEAN CORPUSCULAR HEMOGLOBIN 29.6 pg (27.0-33.0); MEAN CORPUSCULAR HGB CONC 32.4 g/dl (32.0-36.5); MEAN CORPUSCULAR VOLUME 91.3 fl (80.0-96.0); MONO # 0.8 10^3/uL (0.0-0.8); MONO % 10.5 % (2.0-8.0); NEUTROPHILS # 3.5 10^3/uL (1.5-8.5); NEUTROPHILS % 44.5 % (36.0-66.0); PLATELET COUNT, AUTOMATED 239 10^3/uL (150-450); RED BLOOD COUNT 4.23 10^6/uL (4.30-6.10); WHITE BLOOD COUNT 7.8 10^3/uL (4.0-10.0)
[2023-12-08 13:56] LABS: CREATININE, URINE 55.8 MG/DL; MAU/CREAT RATIO 155.9 MCG/MG (0.0-30.0)
== END ==
LOC: M PLAIMG 10:32
DX: R06.02 Shortness of breath (principal); R22.1 Localized swelling, mass and lump, neck; E78.00 Pure hypercholesterolemia, unspecified

== ENCOUNTER → 2023-12-28 | Outpatient (REF) | payer MEDICARE, OTHER | LOC: M SFHCPLAZ 17:12 | PROVIDERS: ATTEND Student in an Organized Health Care Education/Training Program | DX: D64.9 Anemia, unspecified (principal) ==

== ENCOUNTER → 2023-12-31 | Outpatient (CLI) | payer MEDICARE, OTHER | LOC: M WHC 18:21 | PROVIDERS: ATTEND Internal Medicine Hematology | DX: R22.1 Localized swelling, mass and lump, neck (principal) ==

== ENCOUNTER → 2024-01-18 | Outpatient (CLI) | payer MEDICARE, MEDICAID | LOC: M CARPUL 13:41 | DX: J43.8 Other emphysema (principal) ==

== ENCOUNTER → 2024-04-14 | Outpatient (CLI) | payer MEDICARE, MEDICAID ==
[2024-04-14 14:21] LABS: IRON (FE) 105 UG/DL (65-175)
[2024-04-14 14:22] LABS: VITAMIN B12 LEVEL 435 PG/ML (211-911)
[2024-04-14 14:23] LABS: PERCENT SATURATION 31.3 % (19.7-50.0); TOTAL IRON BINDING CAPACITY 335 UG/DL (250-425)
[2024-04-14 14:24] LABS: ALBUMIN 3.9 G/DL (3.2-5.2); ALKALINE PHOSPHATASE 45 U/L (40-129); ALT/SGPT 41 U/L (7.0-40); AST/SGOT 28 U/L (<34); BILIRUBIN,TOTAL 0.9 MG/DL (0.3-1.2); BLOOD UREA NITROGEN 17 MG/DL (9-23); CALCIUM LEVEL 9.7 MG/DL (8.3-10.6); CARBON DIOXIDE LEVEL 24 MMOL/L (20-31); CHLORIDE LEVEL 106 MMOL/L (98-107); GLOMERULAR FILTRATION RATE > 60.0 (>49); GLUCOSE, FASTING 230 MG/DL (74-106); POTASSIUM SERUM 4.8 MMOL/L (3.5-5.1); SODIUM LEVEL 142 MMOL/L (136-145); TOTAL PROTEIN 7.4 G/DL (5.7-8.2)
[2024-04-14 14:27] LABS: FOLATE > 24.0 NG/ML (>5.4)
== END ==
LOC: M PLALAB 09:33
DX: E11.65 Type 2 diabetes mellitus with hyperglycemia (principal)

== ENCOUNTER → 2024-06-20 | Outpatient (CLI) | payer MEDICARE, MEDICAID ==
[2024-06-20 14:46] LABS: BASO # 0.1 10^3/uL (0.0-0.2); BASO % 0.6 % (0.0-1.0); EOS # 0.1 10^3/uL (0.0-0.5); EOS % 1.5 % (0.0-3.0); HEMATOCRIT 40.8 % (42.0-52.0); LYMPH # 3.3 10^3/uL (1.5-5.0); LYMPH % 36.8 % (24.0-44.0); MEAN CORPUSCULAR HEMOGLOBIN 30.6 pg (27.0-33.0); MEAN CORPUSCULAR HGB CONC 31.9 g/dl (32.0-36.5); MONO # 0.7 10^3/uL (0.0-0.8); MONO % 7.3 % (2.0-8.0); NEUTROPHILS # 4.7 10^3/uL (1.5-8.5); NEUTROPHILS % 53.5 % (36.0-66.0); PLATELET COUNT, AUTOMATED 256 10^3/uL (150-450); RED BLOOD COUNT 4.25 10^6/uL (4.30-6.10); WHITE BLOOD COUNT 8.9 10^3/uL (4.0-10.0)
[2024-06-20 15:04] LABS: HEMOGLOBIN A1c 8.1 % (4.0-6.0)
[2024-06-20 15:05] LABS: FREE T4 1.15 NG/DL (0.89-1.76); THYROID STIMULATING HORMONE 0.747 uIU/ML (0.55-4.78)
[2024-06-20 15:06] LABS: ALBUMIN 3.9 G/DL (3.2-5.2); BILIRUBIN,TOTAL 0.5 MG/DL (0.3-1.2); CALCIUM LEVEL 9.3 MG/DL (8.3-10.6); CHOLESTEROL RISK RATIO 1.99 (<5); CREATININE FOR GFR 1.22 MG/DL (0.70-1.30); GLOMERULAR FILTRATION RATE 64.6 (>49); HDL CHOLESTEROL 50.1 MG/DL (>40); LDL CHOLESTEROL 24.1 MG/DL (<100); NON-HDL-C 49.9 MG/DL; POTASSIUM SERUM 4.6 MMOL/L (3.5-5.1)
== END ==
LOC: M PLALAB 10:24
DX: Z00.00 Encounter for general adult medical examination without abnormal findings (principal); E07.9 Disorder of thyroid, unspecified; E78.00 Pure hypercholesterolemia, unspecified

== ENCOUNTER → 2024-10-27 | Outpatient (CLI) | payer MEDICARE, MEDICAID | LOC: M RAD 07:48 | DX: Z87.891 Personal history of nicotine dependence (principal) ==